=== PATIENT | female | born 1965 | race Caucasian/White ===

== ENCOUNTER 2016-10-29 19:44 | Emergency (ER) | payer BC ==
[~2016-10-29] VITALS: Ht 170.2 cm; Wt 101.5 kg
[~2016-10-29 19:44] MED LIST: CALCTAB5 PO; FIBER PO; IBUP-1050 PO; OMEG10007 PO
[2016-10-29 19:57] VITALS: TEMP 37.1; Ht 170.2 cm; Wt 101.5 kg
[2016-10-29] MEDS ORDERED: KETOROLAC TROMETHAMINE 30 MG/ML VIAL IV STA (20:11)
--- NOTE | 2016-10-29 20:36 | DIAGNOSTIC IMAGING REPORT ---
CHEST ONE VIEW PORTABLE CLINICAL HISTORY: Evaluate Fever/Sepsis dyspnea COMPARISON STUDY: 08/16/2006 FINDINGS: The bones soft tissues and hemidiaphragms are normal. The cardiomediastinal silhouette is normal. The lungs are clear. The pulmonary vasculature is normal. IMPRESSION: Negative chest. Electronically signed by: Mani Kowalski M.D. 10/29/2016 8:34 PM
[2016-10-29 20:37] LABS: BASO % 0.7 %; BASO ABS # 0.07 K/uL (0-0.2); COMPLETE YES; EOS % 2.8 %; HEMATOCRIT 40.2 % (37-47); IG% 0.2 %; LYMPH % 46.6 %; LYMPH ABS # 4.47 K/uL (1.2-3.4); MEAN CELL VOLUME 89.1 fL (80-100); MEAN CORPUSCULAR HEMOGLOBIN 29.9 pg (25-34); MEAN CORPUSCULAR HGB CONC 33.6 g/dl (32-36); MEAN PLATELET VOLUME 10.4 fL (7.4-10.4); MONO % 4.9 %; NEUT % 44.8 %; PLATELET COUNT 258 K/uL (130-400); RED BLOOD COUNT 4.51 M/uL (4.2-5.4); WHITE BLOOD COUNT 9.59 K/uL (4.8-10.8)
[2016-10-29 20:51] LABS: PARTIAL THROMBOPLASTIN RATIO 1.1; PROTHROMBIN TIME (PATIENT) 10.2 SECONDS (9.0-12.0)
[2016-10-29] MEDS ORDERED: MoRPHine SULFATE 4 MG/ML 1 ML CARP\\VIAL IV STA (20:51)
[2016-10-29] MEDS ORDERED: GLUCTAB7 PO (20:56)
[2016-10-29] MEDS ORDERED: PSYL1CAP4 PO (20:56)
[2016-10-29] MEDS ORDERED: CYCL10TA6 PO (20:56)
[2016-10-29] MEDS ORDERED: IBUP-1050 PO (20:56)
[2016-10-29] MEDS ORDERED: TOPI25TA99 PO (20:56)
[2016-10-29] MEDS ORDERED: ECHI80CA PO (20:56)
[2016-10-29 20:58] LABS: ALT/SGPT 20 U/L (12-78); BLOOD UREA NITROGEN 16 mg/dl (7-18); BUN/CREATININE RATIO 21.1 (10-20); CALCIUM 8.8 mg/dl (8.5-10.1); CARBON DIOXIDE 26 mmol/L (21-32); CHLORIDE 109 mmol/L (98-107); CREATININE 0.75 mg/dl (0.60-1.20); GLUCOSE 95 mg/dl (70-99); POTASSIUM 3.5 mmol/L (3.5-5.1); SODIUM 142 mmol/L (136-145)
[2016-10-29 21:01] LABS: ALKALINE PHOSPHATASE 80 U/L (45-117); AST/SGOT 16 U/L (15-37)
--- NOTE | 2016-10-29 21:14 | EMERGENCY ROOM VISIT NOTE ---
History Report prepared by Jacquelyn: Jackie Humphreys Under the Supervision of: Dr. Leo Mcintyre D.O. First contact with patient: 20:05 Chief Complaint: CHEST PAIN Stated Complaint: CHEST PAIN- HX CARDIAC Nursing Triage Summary: Patient reports chest pain that began a couple weeks ago. Patient states "it hurts to take a deep breath." Denies nausea and diaphoresis. Patient has hx slight mitral valve prolapse. History of Present Illness The patient is a 50 year old female who presents to the Emergency Room with complaints of intermittent left sided chest pain that began 2-3 weeks ago. She currently rates her discomfort as a 10/10 in severity. The patient states that when her discomfort started 2-3 weeks ago she had a cold and additionally notes that she quit smoking at this time. The patient describes her pain as a sharp pain and states that it wakes her in the middle of the night. She states that her pain is worsened with breathing and notes that it radiates to her back. The patient states that she cannot work out due to the pain. Source of History: patient Onset: 2-3 weeks ago Position: chest (left) Symptom Intensity: 10/10 Quality: sharp Timing: intermittent Modifying Factors (Worsening): breathing Associated Symptoms: + back pain Review of Systems See HPI for pertinent positives & negatives. A total of 10 systems reviewed and were otherwise negative. Past Medical & Surgical Medical Problems: (1) Kidney stones Surgical Problems: (1) S/P hysterectomy Family History Diabetes mellitus Gallbladder disease Heart disease Hypertension Kidney disease Social History Smoking Status: Former Smoker Drug Use: none Marital Status: Housing Status: lives with family Occupation Status: employed Current/Historical Medications Scheduled Echinacea (Echinacea), 4 CAP PO DAILY Fish Oil ([place]-3), 4 CAP PO DAILY Hdukjfbrwey-Kffwbjsbitv-Cbj C- (Glucosamine Chondroitin), 2 TABS PO DAILY Ibuprofen (Advil), 800 MG PO QAM Psyllium (Fiber), 5 CAP PO DAILY Topiramate (Topamax ), 25 MG PO BID Scheduled PRN Cyclobenzaprine Hcl (Flexeril), 10 MG PO BID PRN for Muscle Spasm Ibuprofen (Advil), 800 MG PO UD PRN for Pain or Fever Allergies Coded Allergies: Acetaminophen (Verified Allergy, Intermediate, Hives, 10/29/16) Dextromethorphan (Verified Allergy, Intermediate, Hives, 10/29/16) Ethanol (Verified Allergy, Intermediate, Hives, 10/29/16) Latex (Verified Allergy, Intermediate, Hives, 10/29/16) Adhesives (Unverified Allergy, Mild, 02/04/16) Diclofenac (Unverified Allergy, Mild, 02/04/16) Doxylamine (Unverified Allergy, Mild, 02/04/16) Pseudoephedrine (Unverified Allergy, Mild, 02/04/16) Physical Exam Vital Signs Date Time Temp Pulse Resp B/P Pulse Ox O2 Delivery O2 Flow Rate FiO2 10/29/16 21:13 66 10/29/16 21:00 65 16 130/87 97 Room Air 10/29/16 20:22 Room Air 10/29/16 19:57 37.1 71 18 147/82 97 Room Air Physical Exam CONSTITUTIONAL/VITAL SIGNS: Reviewed / noted above. GENERAL: Non-toxic in appearance. INTEGUMENTARY: Warm, dry, and [place]. HEAD: Normocephalic. EYES: without scleral icterus or trauma. ENT/OROPHARYNX: clear and moist. LYMPHADENOPATHY/NECK: Is supple without lymphadenopathy or meningismus. CHEST WALL: Tenderness to palpation of the costochondral region of the left anterior chest wall. RESPIRATORY: Lungs clear and equal. CARDIOVASCULAR: Regular rate and rhythm. GI/ABDOMEN: Soft and nontender. No organomegaly or pulsatile mass. No rebound or guarding. Normal bowel sounds. EXTREMITIES: Warm and well perfused. BACK: No CVA tenderness. NEUROLOGICAL: Intact without focal deficits. PSYCHIATRIC: normal affect. MUSCULOSKELETAL: Normally developed with good muscle tone. Medical Decision & Procedures ER Provider Diagnostic Interpretation: X ray results and stated below per my interpretation and radiology interpretation. CHEST ONE VIEW PORTABLE CLINICAL HISTORY: Evaluate Fever/Sepsis dyspnea COMPARISON STUDY: 08/16/2006 FINDINGS: The bones soft tissues and hemidiaphragms are normal. The cardiomediastinal silhouette is normal. The lungs are clear. The pulmonary vasculature is normal. IMPRESSION: Negative chest. Electronically signed by: Mani Kowalski M.D. 10/29/2016 8:34 PM Laboratory Results 10/29/16 20:20 Red Blood Count 4.51, Mean Corpuscular Volume 89.1, Mean Corpuscular Hemoglobin 29.9, Mean Corpuscular Hemoglobin Concent 33.6, Mean Platelet Volume 10.4, Neutrophils (%) (Auto) 44.8, Lymphocytes (%) (Auto) 46.6, Monocytes (%) (Auto) 4.9, Eosinophils (%) (Auto) 2.8, Basophils (%) (Auto) 0.7, Neutrophils # (Auto) 4.29, Lymphocytes # (Auto) 4.47, Monocytes # (Auto) 0.47, Eosinophils # (Auto) 0.27, Basophils # (Auto) 0.07 10/29/16 20:20 Test 10/29/16 20:20 10/29/16 20:31 White Blood Count 9.59 K/uL (4.8-10.8) Red Blood Count 4.51 M/uL (4.2-5.4) Hemoglobin 13.5 g/dL (12.0-16.0) Hematocrit 40.2 % (37-47) Mean Corpuscular Volume 89.1 fL (80-100) Mean Corpuscular Hemoglobin 29.9 pg (25-34) Mean Corpuscular Hemoglobin Concent 33.6 g/dl (32-36) Platelet Count 258 K/uL (130-400) Mean Platelet Volume 10.4 fL (7.4-10.4) Neutrophils (%) (Auto) 44.8 % Lymphocytes (%) (Auto) 46.6 % Monocytes (%) (Auto) 4.9 % Eosinophils (%) (Auto) 2.8 % Basophils (%) (Auto) 0.7 % Neutrophils # (Auto) 4.29 K/uL (1.4-6.5) Lymphocytes # (Auto) 4.47 K/uL (1.2-3.4) Monocytes # (Auto) 0.47 K/uL (0.11-0.59) Eosinophils # (Auto) 0.27 K/uL (0-0.5) Basophils # (Auto) 0.07 K/uL (0-0.2) RDW Standard Deviation 42.7 fL (36.4-46.3) RDW Coefficient of Variation 13.0 % (11.5-14.5) Immature Granulocyte % (Auto) 0.2 % Immature Granulocyte # (Auto) 0.02 K/uL (0.00-0.02) Prothrombin Time 10.2 SECONDS (9.0-12.0) Prothromb Time International Ratio 1.0 (0.9-1.1) Activated Partial Thromboplast Time 28.0 SECONDS (21.0-31.0) Partial Thromboplastin Ratio 1.1 Anion Gap 7.0 mmol/L (3-11) Est Creatinine Clear Calc Drug Dose 112.3 ml/min Estimated GFR () 109.2 Estimated GFR (Non- 94.3 BUN/Creatinine Ratio 21.1 (10-20) Calcium Level 8.8 mg/dl (8.5-10.1) Total Bilirubin 0.1 mg/dl (0.2-1) Direct Bilirubin < 0.1 mg/dl (0-0.2) Aspartate Amino Transf (AST/SGOT) 16 U/L (15-37) Alanine Aminotransferase (ALT/SGPT) 20 U/L (12-78) Alkaline Phosphatase 80 U/L (45-117) Total Protein 7.2 gm/dl (6.4-8.2) Albumin 3.8 gm/dl (3.4-5.0) Bedside D-Dimer 311 ng/mlFEU (0-450) Bedside Troponin I 0.000 ng/ml (0-0.045) Laboratory results as stated above per my review. Medications Administered Medications (Trade) Dose Ordered Sig/Franklin Route Start Time Stop Time Status Last Admin Dose Admin Ketorolac Tromethamine (Toradol Inj) 30 mg NOW STAT IV 10/29/16 20:11 10/29/16 20:13 DC 10/29/16 20:23 30 MG Morphine Sulfate (MoRPHine SULFATE INJ) 4 mg NOW STAT IV 10/29/16 20:51 10/29/16 20:53 DC 10/29/16 20:58 4 MG ECG Indication: chest pain Rate (beats per minute): 58 Rhythm: sinus bradycardia Findings: no acute ischemic change, no ectopy ED Course 2006: Previous medical records were reviewed. The patient was evaluated in room C6. A complete history and physical examination was performed. 2010: Ordered Toradol Inj 30 mg IV. 2050: Ordered Morphine Sulfate 4 mg IV. 2114: I reevaluated the patient and she is resting comfortably. I discussed the exam findings and I discussed the treatment plan. She verbalized complete understanding and agreement. She is ready to go home. Medical Decision the differential was considered includes acute myocardial infarction, acute coronary syndrome, myocarditis, pericarditis, pericardial effusions /tamponad, esophageal perforation, thoracic aortic dissection, pulmonary embolism, pneumonia, pneumothorax, pancreatitis, shingles, acute cholecystitis, perforated abdominal viscus. This is a 50-year-old female who presents to the ED with a chief complaint of chest pain for the past 2-3 weeks. The patient's pain is retrosternal and left chest. She states that is worse with breathing. The patient states that her symptoms started after having upper respiratory illness and a lot of coughing. She states he also quit smoking 3 weeks ago. Her vital signs are normal. She is afebrile. She is not hypoxic. Her physical exam reveals reproducible left chest wall tenderness on exam. Lungs are clear. Chest x-ray did not show acute disease. CBC is normal. D-dimer is negative. Troponin is negative. Metabolic panel was unremarkable. The patient was told results the test per cheese treated with IV Toradol and IV morphine here for pain. NSAIDs were recommended as outpatient treatment. She is felt to be stable for discharge and outpatient follow-up. Impression Primary Impression: Costochondral pain Scribe Attestation The scribe's documentation has been prepared under my direction and personally reviewed by me in its entirety. I confirm that the note above accurately reflects all work, treatment, procedures, and medical decision making performed by me. Departure Information Dispostion Home / Self-Care Referrals Megan Lujan M.D. (PCP) Forms HOME CARE DOCUMENTATION FORM, IMPORTANT VISIT INFORMATION Patient Instructions A Signature Page, ED Chest Pain Costochondritis, My [facility] Additional Instructions Take ibuprofen 600 mg every 6 hours as needed for pain. Follow-up with your doctor for further care and evaluation in 1-2 days. Return to the emergency department for worsening or new symptoms or any concerns. You have been examined and treated today on an emergency basis only. This is not a substitute for, or an effort to provide, complete comprehensive medical care. It is impossible to recognize and treat all injuries or illnesses in a single emergency department visit. It is therefore important that you follow up closely with your doctor. Call as soon as possible for an appointment.
[2016-10-29 21:35] VITALS: BP 130/87; PULSE 66; O2SAT 97
[2016-12-13] MEDS ORDERED: OSEL75CA23 PO (09:43)
[2017-08-31] MEDS ORDERED: MELO7.5T5 PO (15:23)
[2017-08-31] MEDS ORDERED: ACET-1256 PO (15:23)
[2017-08-31] MEDS ORDERED: VNTHFA/IN INH (15:23)
[2017-08-31] MEDS ORDERED: FLUT0.15 INTNAS (15:23)
[2017-08-31] MEDS ORDERED: PSYLLIUM PO (15:23)
[2017-10-29] MEDS ORDERED: OXYC1TAB3 PO (23:08)
== END 2016-10-29 21:21 | disposition home or self-care (01) ==
LOC: C.EDB 19:45 → C.EDC 21:21
DX: R07.1 Chest pain on breathing (principal); Z79.899 Other long term (current) drug therapy

== ENCOUNTER 2016-12-13 08:31 | Emergency (ER) | payer BC, OTHER ==
[~2016-12-13] VITALS: Ht 170.2 cm; Wt 100.7 kg
[~2016-12-13 08:31] MED LIST changes: -CALCTAB5 PO; +CYCL10TA6 PO; +ECHI80CA PO; -FIBER PO; +GLUCTAB7 PO; +PSYL1CAP4 PO; +TOPI25TA99 PO
[2016-12-13 08:39] VITALS: TEMP 37.8; Ht 170.2 cm; Wt 100.7 kg
[2016-12-13] MEDS ORDERED: ONDANSETRON INJ 2 MG/ML 2 ML VIAL IV PRN (09:00)
[2016-12-13] MEDS ORDERED: SODIUM CHLORIDE 0.9% 1000ML 1,000 ML IV ONE (09:00)
--- NOTE | 2016-12-13 09:05 | EMERGENCY ROOM VISIT NOTE ---
History Report prepared by Jacquelyn: Jackie Humphreys Under the Supervision of: Dr. Ari Rivera M.D. First contact with patient: 08:50 Chief Complaint: ILLNESS Stated Complaint: SEVERE HEAD/NECK PAIN, DIZZY, N DX: FLU THIS WEEK History of Present Illness The patient is a 50 year old female who presents to the Emergency Room with complaints of a persistent illness that began Thursday. She currently rates her discomfort as a 10/10 in severity. The patient states that early this week she was diagnosed with the flu. She states that after she was diagnosed her mother and law was diagnosed. The patient states that she was started on Tamiflu on . The patient notes multiple sick contacts between her place of employment and her family. The patient's notes that he was recently discharged from the hospital with viral meningitis. The patient associates a headache, neck pain, nausea, dizziness, lightheadedness, visual disturbances, and a cough. She denies any abdominal pain. The patient states that she was started on a Z-pack. Source of History: patient Onset: Thursday Position: other (global) Symptom Intensity: 10/10 Quality: other (illness) Timing: other (persistent) Associated Symptoms: + cough, + headache, + nausea, + neck pain, No abdominal pain Note: Associated Symptoms: dizziness, lightheadedness, visual disturbances. Review of Systems All systems have been listed, reviewed, and are negative other than those previously mentioned. Please see Additional Medical History Sheet. Past Medical & Surgical Medical Problems: (1) Kidney stones Surgical Problems: (1) S/P hysterectomy Family History Cancer Diabetes mellitus Gallbladder disease Heart disease Hypertension Kidney disease Kidney stones Lung disease Social History Smoking Status: Current Every Day Smoker Drug Use: none Marital Status: Housing Status: lives with family Occupation Status: employed Current/Historical Medications Scheduled Benzonatate (Tessalon Perles), 100 MG PO TID Cetirizine (Zyrtec), 10 MG PO DAILY Echinacea (Echinacea), 4 CAP PO DAILY Fish Oil ([place]-3), 4 CAP PO DAILY Rmuamglimzg-Psvuczhklyr-Uot C- (Glucosamine Chondroitin), 2 TABS PO DAILY Ibuprofen (Advil), 800 MG PO QAM Ondasetron Odt (Zofran Odt), 4 MG SL Q6H Oseltamivir Phosphate (Tamiflu), 75 MG PO BID Psyllium (Fiber), 5 CAP PO DAILY Topiramate (Topamax ), 25 MG PO BID Scheduled PRN Guaifenesin-Codeine (Iophen C-Nr), 5 ML PO Q4 PRN for Cough Ibuprofen (Advil), 800 MG PO UD PRN for Pain or Fever Naproxen (Aleve), 440 MG PO Q12 PRN for Pain or Fever Oxycodone Immediate Rel Tab (Roxicodone Ir), 1-2 TAB PO Q4H PRN for Severe Pain Allergies Coded Allergies: Acetaminophen (Verified Allergy, Intermediate, Hives, 12/13/16) Dextromethorphan (Verified Allergy, Intermediate, Hives, 12/13/16) Ethanol (Verified Allergy, Intermediate, Hives, 12/13/16) Latex (Verified Allergy, Intermediate, Hives, 12/13/16) Adhesives (Unverified Allergy, Mild, 12/13/16) Diclofenac (Unverified Allergy, Mild, 12/13/16) Doxylamine (Unverified Allergy, Mild, 12/13/16) Pseudoephedrine (Unverified Allergy, Mild, 12/13/16) Physical Exam Vital Signs Date Time Temp Pulse Resp B/P Pulse Ox O2 Delivery O2 Flow Rate FiO2 12/13/16 12:40 50 20 104/58 94 12/13/16 12:16 52 20 97/63 96 Room Air 12/13/16 11:45 52 20 115/63 97 Room Air 12/13/16 10:49 60 20 106/58 98 12/13/16 09:35 Room Air 12/13/16 09:09 67 12/13/16 09:07 62 113/63 96 12/13/16 08:39 37.8 55 18 87/53 95 Room Air Physical Exam GENERAL: Patient awake, alert, oriented x 3. Patient follows commands. Patient appears to be in moderate to severe distress, somewhat pale. SKIN: No erythema, pallor, cyanosis or rash HEENT: Normal head, pupils equal, reactive to light and accommodation. Ears normal. Oral cavity and posterior pharynx appear normal. Neck: Pain with flexion of her neck. Without adenopathy, no neck vein distention. LUNGS: Some pain with deep inspiration. Clear to auscultation. No wheezes, no rales, no rhonchi. HEART: No murmurs. No gallops. No rubs ABDOMEN: No masses, no rebound, no hepatomegaly or splenomegaly. EXTREMITIES: No signs of trauma. No pedal or pretibial edema. No calf or thigh tenderness. NEUROLOGIC: Cranial nerves II-XII within normal limits. No gross motor sensory function deficits. Medical Decision & Procedures ER Provider Diagnostic Interpretation: X ray results are stated below per my interpretation and the radiologist's interpretation. CHEST 2 VIEWS ROUTINE CLINICAL HISTORY: Cough. COMPARISON STUDY: Chest radiograph October 29, 2016. FINDINGS: Lung volumes are normal. Lungs are clear. There is no pneumothorax or pleural effusion. Cardiomediastinal silhouette is normal. Mild interstitial prominence is unchanged and likely within normal limits. There is no evidence of pulmonary edema. IMPRESSION: No acute cardiopulmonary findings. Electronically signed by: Norberto Rubio M.D. 12/13/2016 10:23 AM Dictated Date/Time: 12/13/2016 10:22 AM Laboratory Results 12/13/16 09:07 Red Blood Count 4.28, Mean Corpuscular Volume 88.1, Mean Corpuscular Hemoglobin 30.1, Mean Corpuscular Hemoglobin Concent 34.2, Mean Platelet Volume 10.5, Neutrophils (%) (Auto) 39.4, Lymphocytes (%) (Auto) 46.7, Monocytes (%) (Auto) 10.0, Eosinophils (%) (Auto) 2.9, Basophils (%) (Auto) 0.6, Neutrophils # (Auto ) 2.05, Lymphocytes # (Auto) 2.43, Monocytes # (Auto) 0.52, Eosinophils # (Auto ) 0.15, Basophils # (Auto) 0.03 12/13/16 09:07 Test 12/13/16 09:07 12/13/16 09:37 12/13/16 10:00 White Blood Count 5.20 K/uL (4.8-10.8) Red Blood Count 4.28 M/uL (4.2-5.4) Hemoglobin 12.9 g/dL (12.0-16.0) Hematocrit 37.7 % (37-47) Mean Corpuscular Volume 88.1 fL (80-100) Mean Corpuscular Hemoglobin 30.1 pg (25-34) Mean Corpuscular Hemoglobin Concent 34.2 g/dl (32-36) Platelet Count 199 K/uL (130-400) Mean Platelet Volume 10.5 fL (7.4-10.4) Neutrophils (%) (Auto) 39.4 % Lymphocytes (%) (Auto) 46.7 % Monocytes (%) (Auto) 10.0 % Eosinophils (%) (Auto) 2.9 % Basophils (%) (Auto) 0.6 % Neutrophils # (Auto) 2.05 K/uL (1.4-6.5) Lymphocytes # (Auto) 2.43 K/uL (1.2-3.4) Monocytes # (Auto) 0.52 K/uL (0.11-0.59) Eosinophils # (Auto) 0.15 K/uL (0-0.5) Basophils # (Auto) 0.03 K/uL (0-0.2) RDW Standard Deviation 42.5 fL (36.4-46.3) RDW Coefficient of Variation 13.2 % (11.5-14.5) Immature Granulocyte % (Auto) 0.4 % Immature Granulocyte # (Auto) 0.02 K/uL (0.00-0.02) Anion Gap 12.0 mmol/L (3-11) Est Creatinine Clear Calc Drug Dose 123.4 ml/min Estimated GFR () 119.9 Estimated GFR (Non- 103.4 BUN/Creatinine Ratio 14.6 (10-20) Calcium Level 8.4 mg/dl (8.5-10.1) Total Bilirubin 0.4 mg/dl (0.2-1) Aspartate Amino Transf (AST/SGOT) 11 U/L (15-37) Alanine Aminotransferase (ALT/SGPT) 15 U/L (12-78) Alkaline Phosphatase 60 U/L (45-117) Total Protein 6.6 gm/dl (6.4-8.2) Albumin 3.5 gm/dl (3.4-5.0) Globulin 3.1 gm/dl (2.5-4.0) Albumin/Globulin Ratio 1.1 (0.9-2) CSF Color COLORLESS CSF Appearance CLEAR CSF WBC 4 /uL (0-5) CSF RBC 0 /uL (0) CSF Xanthrochromic NO XANTHOCHROMIA CSF Cell Count Tube # 4 CSF Polynuclear WBCs (%) % CSF Chemistry Tube # 2 CSF Glucose 55 mg/dl (40-70) CSF Total Protein 30.6 mg/dl (15.0-45.0) Influenza Type A (RT-PCR) Neg for Influ A (NEG) Influenza Type B (RT-PCR) Neg for Influ B (NEG) Laboratory results as stated above per my review. Medications Administered Medications (Trade) Dose Ordered Sig/Franklin Route Start Time Stop Time Status Last Admin Dose Admin Sodium Chloride (Nss 1000ml) 1,000 ml @ 1,000 mls/hr Q1H ONCE IV 12/13/16 09:00 12/13/16 09:59 DC 12/13/16 09:05 1,000 MLS/HR Morphine Sulfate (MoRPHine SULFATE INJ) 6 mg Q1H PRN IV 12/13/16 09:00 12/13/16 13:18 DC 12/13/16 10:53 6 MG Ondansetron HCl (Zofran Inj) 4 mg Q1HWA PRN IV 12/13/16 09:00 12/13/16 13:18 DC 12/13/16 09:45 4 MG Ceftriaxone Sodium (Rocephin Inj) 1 gm NOW STAT IV 12/13/16 11:49 12/13/16 11:50 DC 12/13/16 12:11 1 GM Procedure Lumbar Puncture Indication: Rule out meningitis. The opening pressure was 27 and the closing pressure was 24. Verbal consent was obtained after the risks and benefits were explained, including but not limited to headache, bleeding/clotting, scarring, infection, pain, and bone/joint/nerve damage. At this time, the risks of the procedure are less than the risks of NOT performing the procedure. A time out was taken and the correct patient and site identified. The patient was placed in the left lateral Recumbant position and the back was prepped with betadine and draped in the standard fashion. The L3 intervertebral space was identified, anesthetized locally with 1% lidocaine without epinephrine, and the spinal needle was inserted through the skin with the bevel parallel to the dural fibers. The needle was carefully advanced into the lumbar cistern and 4 tubes of clear, colorless CSF was obtained. The stylet was replaced and the needle was removed. A bandaid was placed and the patient was placed in the supine position. The patient tolerated the procedure well and there were no complications. ED Course 0850: Past medical records reviewed. The patient was evaluated in room B8. A complete history and physical examination was performed. 0900: Ordered Zofran Inj 4 mg IV, Morphine Sulfate 6 mg IV, Sodium Chloride 1000 ml at 1000 mls/hr IV. 0923: I performed the lumbar puncture on the patient. See procedure note for further detail. 1145: I reevaluated the patient and she is resting comfortably. I discussed the exam findings with her and I discussed the treatment plan. She verbalized complete understanding and agreement. She is ready to go home. 1149: Ordered Rocephin Inj 1 gm IV. Medical Decision Nurses notes reviewed. Medical history sheet reviewed. Differential diagnosis includes but is not limited to: influenza, viral illness, pharyngitis, viral meningitis, bacterial meningitis, pneumonia, encephalitis, metabolic disorder, dehydration. The patient's was recently diagnosed with viral meningitis. She tested positive for influenza. She is currently taking Tamiflu. She now is here with multiple aches and pains. Multiple labs, chest x-ray, spinal tap and urinalysis were evaluated. Please see above. The patient's white count is not elevated. The patient has 4 white cells in her spinal tap. Glucose and protein are within normal range. I do not believe the patient has a bacterial cause for her symptoms. Despite that I did give her 1 g of IV Rocephin. The patient is felt safe to return home. She is to drink fluids. She will be given pain medication and Zofran. [place] Drug Monitoring Program Search Results: patient reviewed within database, no issues identified Impression Primary Impression: Viral meningitis Additional Impression: Influenza Scribe Attestation The scribe's documentation has been prepared under my direction and personally reviewed by me in its entirety. I confirm that the note above accurately reflects all work, treatment, procedures, and medical decision making performed by me. Departure Information Dispostion Home / Self-Care Prescriptions Ondasetron Odt (ZOFRAN ODT) 4 Mg Tab 4 MG SL Q6H for Nausea, #10 TAB Prov: Ari Rivera M.D. 12/13/16 Oxycodone Immediate Rel Tab (ROXICODONE IR) 5 Mg Tab 1-2 TAB PO Q4H Y for Severe Pain, #20 TAB Prov: Ari Rivera M.D. 12/13/16 Referrals No Doctor, Assigned (PCP) Forms HOME CARE DOCUMENTATION FORM, IMPORTANT VISIT INFORMATION Patient Instructions My [employer] Additional Instructions Drink plenty of fluids. 1-2 OxyIR every 4 hours as needed for moderate to severe pain. Do not drive or operate machinery while taking OxyIR. 1 Zofran every 4 hours as needed for nausea. REST Follow-up with your family physician within the next 7 days. Problem Qualifiers
[2016-12-13 09:22] LABS: BASO % 0.6 %; BASO ABS # 0.03 K/uL (0-0.2); COMPLETE YES; EOS % 2.9 %; HEMATOCRIT 37.7 % (37-47); IG% 0.4 %; LYMPH % 46.7 %; LYMPH ABS # 2.43 K/uL (1.2-3.4); MEAN CELL VOLUME 88.1 fL (80-100); MEAN CORPUSCULAR HEMOGLOBIN 30.1 pg (25-34); MEAN CORPUSCULAR HGB CONC 34.2 g/dl (32-36); MEAN PLATELET VOLUME 10.5 fL (7.4-10.4); NEUT % 39.4 %; PLATELET COUNT 199 K/uL (130-400); RED BLOOD COUNT 4.28 M/uL (4.2-5.4)
[2016-12-13 09:35] LABS: BUN/CREATININE RATIO 14.6 (10-20); CALCIUM 8.4 mg/dl (8.5-10.1); CREATININE 0.68 mg/dl (0.60-1.20); POTASSIUM 3.9 mmol/L (3.5-5.1)
[2016-12-13 09:38] LABS: ALB/GLOB RATIO 1.1 (0.9-2)
[2016-12-13] MEDS ORDERED: BENZ100C84 PO (09:43)
[2016-12-13] MEDS ORDERED: CETI10TA84 PO (09:43)
[2016-12-13] MEDS ORDERED: GUAI100L2 PO (09:43)
[2016-12-13] MEDS ORDERED: NF406 PO (09:43)
[2016-12-13] MEDS ORDERED: NAPR1TAB9 PO (09:43)
[2016-12-13] MEDS: MoRPHine SULFATE 10 MG/ML CARP/VIAL IV PRN ×2 (09:45→10:53)
[2016-12-13 10:11] LABS: CSF TOTAL PROTEIN 30.6 mg/dl (15.0-45.0)
[2016-12-13 10:16] LABS: CSF APPEARANCE CLEAR; CSF COLOR COLORLESS; CSF XANTHOCHROMIC NO XANTHOCHROMIA
--- NOTE | 2016-12-13 10:24 | DIAGNOSTIC IMAGING REPORT ---
CHEST 2 VIEWS ROUTINE CLINICAL HISTORY: Cough. COMPARISON STUDY: Chest radiograph October 29, 2016. FINDINGS: Lung volumes are normal. Lungs are clear. There is no pneumothorax or pleural effusion. Cardiomediastinal silhouette is normal. Mild interstitial prominence is unchanged and likely within normal limits. There is no evidence of pulmonary edema. IMPRESSION: No acute cardiopulmonary findings. Electronically signed by: Norberto Rubio M.D. 12/13/2016 10:23 AM Dictated Date/Time: 12/13/2016 10:22 AM
[2016-12-13 11:48] LABS: INFLUENZA A PCR Neg for Influ A (NEG); INFLUENZA B PCR Neg for Influ B (NEG)
[2016-12-13] MEDS ORDERED: CEFTRIAXONE SOD INJ 1 GM ADDVIAL IV STA (11:49)
[2016-12-13] MEDS ORDERED: OXYC1TAB3 PO (11:56)
[2016-12-13] MEDS ORDERED: ONDA4TAB10 SL (11:56)
[2016-12-13 12:40] VITALS: BP 104/58; PULSE 50; O2SAT 94
== END 2016-12-13 12:41 | disposition home or self-care (01) ==
LOC: C.EDB 08:33
DX: A87.9 Viral meningitis, unspecified (principal); J11.1 Influenza due to unidentified influenza virus with other respiratory manifestations

== ENCOUNTER 2017-06-05 00:11 | Emergency (ER) | payer OTHER, BC ==
[~2017-06-05] VITALS: Ht 170.2 cm; Wt 105.0 kg
[~2017-06-05 00:11] MED LIST changes: +BENZ100C84 PO; +CETI10TA84 PO; -CYCL10TA6 PO; +GUAI100L2 PO; +NAPR1TAB9 PO; +NF406 PO; +ONDA4TAB10 SL; +OXYC1TAB3 PO
[2017-06-05 00:15] VITALS: TEMP 36.9; Ht 170.2 cm; Wt 105.0 kg
[2017-06-05] MEDS ORDERED: TOPI50TA24 PO (00:39)
[2017-06-05] MEDS ORDERED: ONDA4TAB10 SL (00:39)
[2017-06-05] MEDS ORDERED: HYDROCODONE/ACETAMOPHEN 5/325MG TAB PO STA (00:59)
[2017-06-05] MEDS ORDERED: NORCO 5/325MG HOME PACK PO ONE (01:00)
--- NOTE | 2017-06-05 01:15 | EMERGENCY ROOM VISIT NOTE ---
History Report prepared by Jacquelyn: Luis Alberto Delgadillo Under the Supervision of: Dr. Ca Dooley M.D. First contact with patient: 00:23 Chief Complaint: KNEEPAIN Stated Complaint: LT KNEE PAIN AND SWELLING-WORK RELATED History of Present Illness The patient is a 51 year old female who presents to the Emergency Room with complaints of worsening left knee pain for the past week. The patient states that she took a step backwards and her knee buckled, and a week ago she fell and twisted her knee, and it has been very swollen. She states that January 22 she had surgery on her knee for a torn meniscus. Additionally she got a Synvisc shot on April 27. Source of History: patient Onset: a week ago Position: knee (left) Quality: other (swelling) Timing: worsening Review of Systems See HPI for pertinent positives & negatives. A total of 6 systems reviewed and were otherwise negative. Past Medical & Surgical Medical Problems: (1) Kidney stones Surgical Problems: (1) S/P hysterectomy Family History Cancer Diabetes mellitus Gallbladder disease Heart disease Hypertension Kidney disease Kidney stones Lung disease Social History Smoking Status: Current Every Day Smoker Drug Use: none Marital Status: Housing Status: lives with family Occupation Status: employed Current/Historical Medications Scheduled Cetirizine (Zyrtec), 10 MG PO DAILY Fish Oil ([place]-3), 4 CAP PO DAILY Psyllium (Fiber), 5 CAP PO DAILY Topiramate (Topamax), 50 MG PO BID Scheduled PRN Benzonatate (Tessalon Perles), 100 MG PO TID PRN for Cough Ibuprofen (Advil), 800 MG PO UD PRN for Pain or Fever Ondasetron Odt (Zofran Odt), 4 MG SL Q6H PRN for Nausea or Vomiting Allergies Coded Allergies: Dextromethorphan (Verified Allergy, Intermediate, Hives, 06/05/17) Ethanol (Verified Allergy, Intermediate, Hives, 06/05/17) Latex (Verified Allergy, Intermediate, Hives, 06/05/17) Adhesives (Verified Allergy, Mild, 06/05/17) Diclofenac (Verified Allergy, Mild, 06/05/17) Doxylamine (Verified Allergy, Mild, 06/05/17) Pseudoephedrine (Verified Allergy, Mild, 06/05/17) Physical Exam Vital Signs Date Time Temp Pulse Resp B/P (MAP) Pulse Ox O2 Delivery O2 Flow Rate FiO2 06/05/17 01:30 66 16 111/77 97 06/05/17 00:15 36.9 66 20 129/79 97 Room Air Physical Exam Vital signs reviewed. General: Well-appearing female, in no significant distress. Abdomen: Soft, nontender, nondistended, positive bowel sounds. Musculoskeletal: Left knee has some pain with flexion. Patient able to fully extend the leg. No tenderness along the joint line with valgus and varus stress. Tenderness to palpation to distal patella without significant bony abnormality identified. Atraumatic, no peripheral edema. Atraumatic, no peripheral edema. Neurologic: Patient awake alert and oriented x 3 Skin: Warm, dry, no rash Medical Decision & Procedures ER Provider Diagnostic Interpretation: X-ray results as stated below per interpretation by me: Left Knee: No bony injury. Some degenerative changes, Mild soft tissue swelling. Medications Administered Medications (Trade) Dose Ordered Sig/[place] Route Start Time Stop Time Status Last Admin Dose Admin Acetaminophen/ Hydrocodone Bitart (Antimony 5/325mg Home Pack) 1 homepack UD ONCE PO 06/05/17 01:00 06/05/17 01:01 DC 06/05/17 01:27 1 HOMEPACK Acetaminophen/ Hydrocodone Bitart (Antimony 5/325 Tab) 1 tab NOW STAT PO 06/05/17 00:59 06/05/17 01:01 DC 06/05/17 01:09 1 TAB ED Course 0053: Past medical records reviewed. The patient was evaluated in room A11. A complete history and physical examination was performed. 0059: Antimony 5/325 1 Tab PO 0100: Antimony 5/325mg 1 Home Pack PO 0120: Upon reevaluation, the patient appeared to have improvement of her symptoms. I discussed findings with her. She verbalized agreement of the treatment plan. She was discharged home. Medical Decision Differential diagnosis: Etiologies such as fracture, dislocation, neurovascular compromise, compartment syndrome, soft tissue injury, as well as others were entertained. This patient was evaluated and appeared to be in no significant distress. Evaluation of the left knee reveals mild soft tissue swelling. The patient has no significant discomfort with valgus and varus stress. Anterior drawer sign is negative. Patient has intact quadriceps tendons. X-rays were obtained and are negative for acute bony fracture to my interpretation. She was placed in a knee immobilizer and will follow-up with orthopedic surgery for reevaluation within the next 1-2 weeks. Patient was given a Antimony home pack, asked to use ibuprofen as needed for less severe pain. She will ice and elevate the knee as much as possible and return to the ER for worsening of symptoms or any medical concerns. Medication Reconcilliation Current Medication List: was personally reviewed by me Blood Pressure Screening Patient's blood pressure: Normal blood pressure Impression Primary Impression: Sprain of knee Scribe Attestation The scribe's documentation has been prepared under my direction and personally reviewed by me in its entirety. I confirm that the note above accurately reflects all work, treatment, procedures, and medical decision making performed by me. Departure Information Dispostion Home / Self-Care Referrals Megan Lujan M.D. (PCP) Forms HOME CARE DOCUMENTATION FORM, IMPORTANT VISIT INFORMATION Patient Instructions My [facility] Additional Instructions Diagnosis: Knee sprain Ibuprofen 600 mg every 6 hours as needed for pain with food. Antimony one tablet every 6 hours as needed for more severe pain. Ice and elevate the knee when possible. Wear your knee immobilizer well on your feet. Follow-up with orthopedic surgery this week for reevaluation. Return to the ER for worsening of symptoms or any medical concerns.
[2017-06-05 01:30] VITALS: BP 111/77; PULSE 66; O2SAT 97
--- NOTE | 2017-06-05 06:41 | DIAGNOSTIC IMAGING REPORT ---
LEFT KNEE 1 OR 2 VIEWS ROUTINE CLINICAL HISTORY: L knee pain pain COMPARISON: None. DISCUSSION: The bones and joint spaces appear intact. There is no evidence of fracture, dislocation or bony disease. There is no evidence for soft tissue swelling. IMPRESSION: Negative study. The above report was generated using voice recognition software. It may contain grammatical, syntax or spelling errors. Electronically signed by: Mani Kowalski M.D. 06/05/2017 6:39 AM Dictated Date/Time: 06/05/2017 6:39 AM
== END 2017-06-05 01:30 | disposition home or self-care (01) ==
LOC: C.EDB 00:12 → C.EDA 01:30
DX: S83.92XA Sprain of unspecified site of left knee, initial encounter (principal); W19.XXXA Unspecified fall, initial encounter; F17.200 Nicotine dependence, unspecified, uncomplicated; Z87.442 Personal history of urinary calculi; Z90.710 Acquired absence of both cervix and uterus; Z79.899 Other long term (current) drug therapy; Z88.8 Allergy status to other drugs, medicaments and biological substances; Z91.040 Latex allergy status; Z91.09 Other allergy status, other than to drugs and biological substances; Z80.9 Family history of malignant neoplasm, unspecified; Z83.3 Family history of diabetes mellitus; Z83.79 Family history of other diseases of the digestive system; Z82.49 Family history of ischemic heart disease and other diseases of the circulatory system; Z84.1 Family history of disorders of kidney and ureter

== ENCOUNTER 2017-07-09 19:38 | Inpatient (IN) | payer BC, OTHER ==
[~2017-07-09] VITALS: Ht 170.2 cm; Wt 106.4 kg
[~2017-07-09 19:38] MED LIST changes: -ECHI80CA PO; -GLUCTAB7 PO; -GUAI100L2 PO; -NAPR1TAB9 PO; -NF406 PO; -OXYC1TAB3 PO; -TOPI25TA99 PO; +TOPI50TA24 PO
[2017-07-09] MEDS ORDERED: ASPIRIN 81 MG CHEW PO STA (19:59)
[2017-07-09] MEDS ORDERED: MoRPHine SULFATE 10 MG/ML CARP/VIAL IV STA (19:59)
[2017-07-09] MEDS ORDERED: BUPR-79 PO (20:02)
[2017-07-09] MEDS ORDERED: HYDR-5688 PO (20:03)
[2017-07-09] MEDS ORDERED: ATOR-24 PO (20:03)
[2017-07-09] MEDS ORDERED: SODIUM CHLORIDE 0.9% 1000ML 1,000 ML IV STA (20:14)
[2017-07-09 20:15] LABS: HEMATOCRIT 40.3 % (37-47); MEAN CELL VOLUME 91.8 fL (80-100); MEAN CORPUSCULAR HEMOGLOBIN 31.9 pg (25-34); MEAN CORPUSCULAR HGB CONC 34.7 g/dl (32-36); MEAN PLATELET VOLUME 10.9 fL (7.4-10.4); PLATELET COUNT 242 K/uL (130-400); RED BLOOD COUNT 4.39 M/uL (4.2-5.4)
[2017-07-09] MEDS ORDERED: METOCLOPRAMIDE HCL INJ 5 MG/ML 2 ML VIAL IV STA (20:17)
--- NOTE | 2017-07-09 20:19 | DIAGNOSTIC IMAGING REPORT ---
CHEST ONE VIEW PORTABLE CLINICAL HISTORY: Atypical chest pain COMPARISON STUDY: 12/13/2016 FINDINGS: The cardiac and mediastinal contours are normal. There is no evidence of focal pulmonary consolidation. There is no evidence of failure. No pleural effusions are visualized.[ IMPRESSION: No active disease in the chest. Electronically signed by: Augustin Beach M.D. 07/09/2017 8:18 PM Dictated Date/Time: 07/09/2017 8:17 PM
--- NOTE | 2017-07-09 20:28 | EMERGENCY ROOM VISIT NOTE ---
History Report prepared by Jacquelyn: Brent Mars Under the Supervision of: Dr. Leo Jackson M.D. First contact with patient: 19:50 Chief Complaint: CHEST PAIN Stated Complaint: CHEST PAIN History of Present Illness The patient is a 51 year old female who presents to the Emergency Room with complaints of intermittent chest pain that started June 24. She rates her pain as a 10/10 in severity. She states that the pain is not correlated to any activity. The patient admits that the chest pain started again last night and kept waking her up in the middle of the night. The patient states that she called her press technician who told her to report to the ED if her pain worsened. She admits that she has a history of a 2nd degree AV block, which she sees her press technician at [facility] for. She also admits to experiencing a wider range of pulses. The patient states that her heart rate "can go from 30 bpm to 114 bpm. The patient states that she had a stress test done six days ago. She states that she saw her doctor two days ago to see if she was fit for a pacemaker. The patient states that they were waiting for her monitor results after wearing it for a week and wanted to see if she had an interaction of medications. She admits to taking Lipitor for hyperlipidemia. She states that her doctor recently ruled out mitral valve prolapse. Source of History: patient Onset: June 24 Position: chest Symptom Intensity: 10/10 Timing: intermittent Review of Systems See HPI for pertinent positives & negatives. A total of 10 systems reviewed and were otherwise negative. Past Medical & Surgical Medical Problems: (1) Kidney stones (2) Symptomatic bradycardia Surgical Problems: (1) S/P hysterectomy Family History Cancer Diabetes mellitus Gallbladder disease Heart disease Hypertension Kidney disease Kidney stones Lung disease Social History Smoking Status: Former Smoker Drug Use: none Marital Status: Housing Status: lives with family Occupation Status: employed Current/Historical Medications Scheduled Atorvastatin (Lipitor), 40 MG PO QAM Bupropion (Wellbutrin Sr), 150 MG PO BID Cetirizine (Zyrtec), 10 MG PO DAILY Fish Oil ([place]-3), 4 CAP PO DAILY Psyllium (Fiber), 5 CAP PO DAILY Topiramate (Topamax), 50 MG PO BID Scheduled PRN Hydrocodone/Acetaminophen 5MG/325MG ([place] 5MG/325MG), 1 TABLET PO Q6 PRN for Pain Ibuprofen (Advil), 800 MG PO UD PRN for Pain or Fever Ondasetron Odt (Zofran Odt), 4 MG SL Q6H PRN for Nausea or Vomiting Allergies Coded Allergies: Dextromethorphan (Verified Allergy, Intermediate, Hives, 07/09/17) Ethanol (Verified Allergy, Intermediate, Hives, 07/09/17) Latex (Verified Allergy, Intermediate, Hives, 07/09/17) Adhesives (Verified Allergy, Mild, 07/09/17) Diclofenac (Verified Allergy, Mild, 07/09/17) Doxylamine (Verified Allergy, Mild, 07/09/17) Pseudoephedrine (Verified Allergy, Mild, 07/09/17) Physical Exam Vital Signs Date Time Temp Pulse Resp B/P (MAP) Pulse Ox O2 Delivery O2 Flow Rate FiO2 07/09/17 20:01 57 07/09/17 19:41 36.7 58 18 163/81 100 Room Air Physical Exam GENERAL: Patient is a healthy-appearing well-nourished 51 year old female. HEAD: Normocephalic atraumatic EYES: Ocular movements intact pupils equal and react to light OROPHARYNX mucous membranes are moist no exudates present no erythema or edema present NECK: Supple no nuchal rigidity CHEST: Good equal expansion LUNGS: Clear and equal to auscultation CARDIAC: Normal S1 and S2 ABDOMEN: Soft nontender no guarding BACK: No CVA tenderness EXTREMITIES: No pain upon palpation normal muscle strength in all groups no clubbing cyanosis or edema NEURO: Patient is following commands and answering questions appropriately. Alert and oriented x3 Cranial Nerves 2-12 grossly intact Medical Decision & Procedures ER Provider Diagnostic Interpretation: X-ray results as stated below per interpretation by me and the radiologist: CHEST ONE VIEW PORTABLE CLINICAL HISTORY: Atypical chest pain COMPARISON STUDY: 12/13/2016 FINDINGS: The cardiac and mediastinal contours are normal. There is no evidence of focal pulmonary consolidation. There is no evidence of failure. No pleural effusions are visualized.[ IMPRESSION: No active disease in the chest. Electronically signed by: Augustin Beach M.D. 07/09/2017 8:18 PM Dictated Date/Time: 07/09/2017 8:17 PM Laboratory Results 07/09/17 20:00 Red Blood Count 4.39, Mean Corpuscular Volume 91.8, Mean Corpuscular Hemoglobin 31.9, Mean Corpuscular Hemoglobin Concent 34.7, Mean Platelet Volume 10.9, Neutrophils (%) (Auto) 33.7, Lymphocytes (%) (Auto) 56.0, Monocytes (%) (Auto) 6.6, Eosinophils (%) (Auto) 2.9, Basophils (%) (Auto) 0.7, Neutrophils # (Auto) 3.07, Lymphocytes # (Auto) 5.10, Monocytes # (Auto) 0.60, Eosinophils # (Auto) 0.26, Basophils # (Auto) 0.06 07/09/17 20:00 07/09/17 20:51 Test 07/09/17 20:00 07/09/17 20:51 White Blood Count 9.10 K/uL (4.8-10.8) Red Blood Count 4.39 M/uL (4.2-5.4) Hemoglobin 14.0 g/dL (12.0-16.0) Hematocrit 40.3 % (37-47) Mean Corpuscular Volume 91.8 fL (80-100) Mean Corpuscular Hemoglobin 31.9 pg (25-34) Mean Corpuscular Hemoglobin Concent 34.7 g/dl (32-36) Platelet Count 242 K/uL (130-400) Mean Platelet Volume 10.9 fL (7.4-10.4) Neutrophils (%) (Auto) 33.7 % Lymphocytes (%) (Auto) 56.0 % Monocytes (%) (Auto) 6.6 % Eosinophils (%) (Auto) 2.9 % Basophils (%) (Auto) 0.7 % Neutrophils # (Auto) 3.07 K/uL (1.4-6.5) Lymphocytes # (Auto) 5.10 K/uL (1.2-3.4) Monocytes # (Auto) 0.60 K/uL (0.11-0.59) Eosinophils # (Auto) 0.26 K/uL (0-0.5) Basophils # (Auto) 0.06 K/uL (0-0.2) RDW Standard Deviation 44.0 fL (36.4-46.3) RDW Coefficient of Variation 13.1 % (11.5-14.5) Immature Granulocyte % (Auto) 0.1 % Immature Granulocyte # (Auto) 0.01 K/uL (0.00-0.02) Anion Gap 6.0 mmol/L (3-11) Est Creatinine Clear Calc Drug Dose 112.2 ml/min Estimated GFR () 106.8 Estimated GFR (Non- 92.1 BUN/Creatinine Ratio 9.9 (10-20) Calcium Level 9.2 mg/dl (8.5-10.1) Total Bilirubin 0.2 mg/dl (0.2-1) Alanine Aminotransferase (ALT/SGPT) 19 U/L (12-78) Alkaline Phosphatase 76 U/L (45-117) Troponin I < 0.015 ng/ml (0-0.045) Total Protein 7.7 gm/dl (6.4-8.2) Albumin 4.2 gm/dl (3.4-5.0) Lipase 100 U/L (73-393) Magnesium Level 2.2 mg/dl (1.8-2.4) Direct Bilirubin < 0.1 mg/dl (0-0.2) Aspartate Amino Transf (AST/SGOT) 10 U/L (15-37) Total Creatine Kinase 92 U/L (26-192) Creatine Kinase MB 0.6 ng/ml (0.5-3.6) Creatine Kinase MB Ratio 0.7 (0-3.0) Thyroid Stimulating Hormone (TSH) 5.180 uIu/ml (0.300-4.500) Free Thyroxine 0.80 ng/dl (0.80-1.60) Labs reviewed by ED physician. Medications Administered Medications (Trade) Dose Ordered Sig/Franklin Route Start Time Stop Time Status Last Admin Dose Admin Aspirin (Aspirin Chew) 324 mg NOW STAT PO 07/09/17 19:59 07/09/17 20:00 DC 07/09/17 20:05 324 MG Morphine Sulfate (MoRPHine SULFATE INJ) 10 mg NOW STAT IV 07/09/17 19:59 07/09/17 20:00 DC 07/09/17 20:05 10 MG Sodium Chloride 1,000 ml @ 999 mls/hr Q1H1M STAT IV 07/09/17 20:14 07/09/17 21:14 DC 07/09/17 20:14 999 MLS/HR Metoclopramide HCl (Reglan Inj) 10 mg NOW STAT IV 07/09/17 20:17 9/14/17 20:18 DC 07/09/17 20:17 10 MG ECG Indication: chest pain Rate (beats per minute): 42 Rhythm: sinus bradycardia Findings: no acute ischemic change, other (2nd degree AV Block, Short QT) ED Course 1951: Past medical records reviewed. The patient was evaluated in room B04B. A complete history and physical examination was performed. 1958: Ordered Aspirin 324 mg PO. 2000: I discussed the patient's case with Ashlie Gruber Cardiology. He understands the patient's condition and agrees to come in to evaluate the patient. 2013: Ordered Sodium Chloride 1000 ml @ 999 mls/hr Iv. 2016: Ordered Reglan Injection 10 mg IV. 2050: I discussed the patient's case with Ashlie Escoto Hospitalist. He understands the patient's condition and agrees to accept the patient. The patient will be further evaluated. Medical Decision The differential diagnosis includes etiologies such as cardiac ischemia, aortic dissection, pulmonary embolism, pneumonia, pneumothorax, musculoskeletal, infections, pericarditis, myocarditis, esophageal rupture, gastrointestinal, as well as others were entertained. This is a 51-year-old female who presents emergency department complaining of chest pain. The patient relates that when her heart rate dropped below 60 she is having the chest pain. This was captured on EKG here in the emergency department. The patient appears to be alternating between his second and third degree block and a normal sinus rhythm. She was given 10 mg of morphine for the pain and given 324 mg of aspirin. I did discuss the case with Dr. Snyder who did agree to come in and see the patient. I did discuss the case also with the hospitalist who is going to admit the patient. Medication Reconcilliation Current Medication List: was personally reviewed by me Blood Pressure Screening Patient's blood pressure: Elevated blood pressure Referred to Hospitalist. Consults Time Called: 2000 Consulting Physician: Ashlie Gruber Cardiology Returned Call: 2000 I discussed the patient's case with Ashlie Gruber Cardiology. He understands the patient's condition and agrees to come in to evaluate the patient. Additional Consults: Time Called: 2050 Consulted Physician: Ashlie Escoto Hospitalist Returned Call: 2050 Additional Comments: I discussed the patient's case with Dr. Marquez, [facility] Hospitalist. He understands the patient's condition and agrees to accept the patient. The patient will be further evaluated. Impression Primary Impression: Chest pain Additional Impression: Bradycardia Scribe Attestation The scribe's documentation has been prepared under my direction and personally reviewed by me in its entirety. I confirm that the note above accurately reflects all work, treatment, procedures, and medical decision making performed by me. Departure Information Dispostion Being Evaluated By Hospitalist Referrals Megan Lujan M.D. (PCP) Patient Instructions My [facility] Problem Qualifiers Primary Impression: Chest pain Chest pain type: unspecified Qualified Codes: R07.9 - Chest pain, unspecified
[2017-07-09 20:36] LABS: BASO % 0.7 %; BASO ABS # 0.06 K/uL (0-0.2); COMPLETE YES; EOS % 2.9 %; IG% 0.1 %; MONO % 6.6 %; NEUT % 33.7 %
[2017-07-09 20:40] LABS: ALKALINE PHOSPHATASE 76 U/L (45-117); ALT/SGPT 19 U/L (12-78); BLOOD UREA NITROGEN 8 mg/dl (7-18); BUN/CREATININE RATIO 9.9 (10-20); CALCIUM 9.2 mg/dl (8.5-10.1); CARBON DIOXIDE 25 mmol/L (21-32); CHLORIDE 112 mmol/L (98-107); CREATININE 0.76 mg/dl (0.60-1.20); GLUCOSE 68 mg/dl (70-99); SODIUM 143 mmol/L (136-145)
[2017-07-09] MEDS ORDERED: DEXTROSE 50% 50 ML SYR IV ONE (21:00)
[2017-07-09 21:14] LABS: POTASSIUM 3.7 mmol/L (3.5-5.1)
[2017-07-09] MEDS ORDERED: DEXTROSE 50% 50 ML SYR ONE (21:15)
[2017-07-09] MEDS ORDERED: POTASSIUM CHLORIDE 10 MEQ TABCR PO STA (21:18)
[2017-07-09 21:24] LABS: AST/SGOT 10 U/L (15-37); CKMB/CK RATIO 0.7 (0-3.0)
[2017-07-09 21:30] LABS: MAGNESIUM 2.2 mg/dl (1.8-2.4); THYROID STIMULATING HORMONE 5.18 uIu/ml (0.300-4.500)
[2017-07-09] MEDS ORDERED: PROMETHAZINE HCL INJ 12.5 MG in SODIUM CHLORIDE 0.9% 50ML 50 ML IV PRN (21:45)
[2017-07-09] MEDS ORDERED: ACETAMINOPHEN 325 MG TAB PO PRN (21:45)
[2017-07-09] MEDS ORDERED: LORAZEPAM 2 MG/ML 1 ML VIAL IV PRN ×3 (21:45→23:00)
[2017-07-09] MEDS ORDERED: HYDROmorphone INJ 0.5 MG/0.5 ML SYR IV PRN ×2 (21:45→22:15)
[2017-07-09] MEDS ORDERED: D5W AND LACTATED RINGERS 1,000 ML IV SCH (21:45)
[2017-07-09] MEDS ORDERED: HYDROmorphone INJ 0.5 MG/0.5 ML SYR ONE (22:04)
[2017-07-09] MEDS ORDERED: LORAZEPAM 2 MG/ML 1 ML VIAL ONE (22:05)
[2017-07-09] MEDS ORDERED: FENTANYL 25 MCG/HR TDSY TD ONE (22:15)
[2017-07-09] MEDS ORDERED: HYDROmorphone INJ 1 MG/ML SYR ONE (22:16)
[2017-07-09] MEDS ORDERED: HYDROmorphone INJ 1 MG/ML SYR IV STA (22:20)
[2017-07-09] MEDS ORDERED: HYDROmorphone INJ 1 MG/ML SYR IV PRN (23:00)
[2017-07-09 23:16] VITALS: BP 100/66; PULSE 58; TEMP 36.5; O2SAT 96
[2017-07-09] MEDS ORDERED: FENTANYL 25 MCG/HR TDSY ONE (23:52)
[2017-07-09] MEDS: CHECK FENTANYL PATCH PLACEMENT SCH (23:58)
--- NOTE | 2017-07-09 23:58 | HISTORY & PHYSICAL EXAMINATION ---
DATE OF ADMISSION: 07/09/2017 PRIMARY CARE DOCTOR: Dr. Lujan. CHIEF COMPLAINT: Chest pain. HISTORY OF PRESENT ILLNESS: History obtained from patient and records. Medical history is significant for recent 2AV block, asthma, past tobacco abuse , hyperlipidemia, migraine. PX sustained L knee injury at work last month. Outpatient procedure for torn meniscus left knee canceled 2 weeks ago when she was developed a second degree type 2 AV block after conscious sedation. Left-sided squeezing chest discomfort occasionally goes back, transient, lasting minutes, daily symptoms, with some shortness of breath and fatigue symptoms. Outpatient Lyme screen, TSH normal. Px referred to [facility] Cardiology. Outpatient nuclear cardiac stress test negative. EF 65% Zio patch read still pending. Seen by [facility] EPS about 2 days ago. Bradyarrhythmia, possibly related to medications and untreated sleep apnea as per note. Consideration for stopping Topamax after pharmacy consultation. 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 Await Zio patch results, outpatient sleep study contemplated as per note. In the last 2 days worsening left-sided chest discomfort, coinciding with slow heart beat. Px brought to the emergency room. Cardiac rate going down to the 30s as per ER M.D. Chest pain symptoms coinciding with bradycardic episodes. Episodic complete heart block noted at some point as per ER M.D. MEDICAL HISTORY: As above. SURGICAL HISTORY: She had hysterectomy, orthopedic procedures. HOME MEDICATIONS: Include atorvastatin, Vicodin, Topamax, bupropion, rizatriptan, fluticasone, cetirizine, lorazepam, fish oil, lactase. ALLERGIES: ALCOHOL, BENGAY, DICLOFENAC, ETHANOL, LACTULOSE, TAPE, VOLTAREN. FAMILY HISTORY: Heart disease, hypertension, colon cancer, asthma. PERSONAL AND SOCIAL HISTORY: Recently stopped smoking. Occasional alcoholic beverage intake. [employer] employee. REVIEW OF SYSTEMS: As per HPI, all other ROS negative. PHYSICAL EXAMINATION: VITAL SIGNS: Blood pressure was noted to be 160/81, later 110/67; pulse rate of 64; RR 18; temperature 36.4; sats 99% on room air. GENERAL: Anxious, uncomfortable. Obese. SKIN: Normal color. HEENT: [place] palpebral conjunctivae. Dry mucosa. NECK: Short neck. LUNGS: Decreased breath sounds. HEART: Regular rate and rhythm. ABDOMEN: Some distention, nontender. EXTREMITIES: Minimal edema, no tenderness NEUROLOGIC: No gross focality. LABORATORY DATA: Hemoglobin 14, hematocrit 40.81, white cell count 9.1, platelets 242. Sodium 140, potassium 3.7, chloride 112, CO2 25, BUN 8, creatinine 0.7, glucose 68. TSH was noted to be 5.18. Chest x-ray showed no active disease. EKG as per my interpretation : rate 40, second degree AV block type 2, diffuse T-wave flattening. ASSESSMENT: 1. Symptomatic bradycardia 2AVB type 2 the last 2 weeks episodic 3AVB on tele noted at the ER as per ER MD Chest pain symptoms noted to coincide with bradycardic episodes during encounter. 2. migraine, stable on maintenance meds 3. Hyperlipidemia on statin Rx 4. past tobacco abuse. PLAN: PCU Transcutaneous pacing for now. (Analgesia, anxiolytics prn) Cardio consult RE symptomatic bradycardia, possible PPM placement. (ER provider already in touch with Dr. Snyder.) DVT prophylaxis, Lovenox subQ. Full code. MTDD
[2017-07-10] VITALS (16 sets, daily range): BP systolic 98–123; BP diastolic 56–82; PULSE 47–82; TEMP 36.5–36.7; O2SAT 93–100; Ht 170.2 cm; Wt 106.4 kg
[2017-07-10 00:37] LABS: LYME DISEASE AB IGG NEG (NEG); LYME DISEASE AB IGM NEG (NEG)
[2017-07-10] MEDS ORDERED: PNEUMOCOCCAL ADMINISTRATION CHARGE ONE (01:15)
[2017-07-10] MEDS ORDERED: PNEUMOCOCCAL POLYSACCHARIDES 25 MCG/0.5 ML VIAL/SYR IM. ONE (01:15)
[2017-07-10 06:36] LABS: BASO % 0.7 %; BASO ABS # 0.05 K/uL (0-0.2); COMPLETE YES; HEMATOCRIT 38.5 % (37-47); IG% 0.1 %; LYMPH % 43.9 %; LYMPH ABS # 3.25 K/uL (1.2-3.4); MEAN CELL VOLUME 93.2 fL (80-100); MEAN CORPUSCULAR HEMOGLOBIN 30.3 pg (25-34); MEAN CORPUSCULAR HGB CONC 32.5 g/dl (32-36); MONO % 8.2 %; NEUT % 44.1 %; PLATELET COUNT 203 K/uL (130-400); RED BLOOD COUNT 4.13 M/uL (4.2-5.4); WHITE BLOOD COUNT 7.41 K/uL (4.8-10.8)
[2017-07-10 06:47] LABS: PARTIAL THROMBOPLASTIN RATIO 1.1
[2017-07-10] MEDS: CHECK FENTANYL PATCH PLACEMENT SCH ×2 (08:00→16:23)
[2017-07-10] MEDS: ENOXAPARIN 40 MG/0.4 ML SYR SC SCH (09:00)
[2017-07-10] MEDS: DOCUSATE SODIUM 100 MG CAP PO SCH (09:00)
[2017-07-10] MEDS: BuPROPion SR 150 MG TABCR PO SCH ×2 (09:01→20:45)
[2017-07-10] MEDS: CETIRIZINE HCL 10 MG TAB PO SCH (09:02)
[2017-07-10] MEDS: TOPIRAMATE 25 MG TAB PO SCH ×2 (09:02→20:45)
[2017-07-10] MEDS: ATORVASTATIN 40 MG TAB PO SCH (09:02)
[2017-07-10] MEDS: HYDROCODONE/ACETAMOPHEN 5/325MG TAB PO PRN ×2 (09:08→19:48)
[2017-07-10 11:28] LABS: BUN/CREATININE RATIO 12.3 (10-20); CALCIUM 8.7 mg/dl (8.5-10.1); CREATININE 0.66 mg/dl (0.60-1.20); POTASSIUM 3.9 mmol/L (3.5-5.1)
[2017-07-10] MEDS ORDERED: KEFZOL SPECIAL PROCEDURE STOCK 1 GM ADDVIAL IV ONE (13:00)
[2017-07-10] MEDS ORDERED: FENTANYL CITRATE INJ 50 MCG/1 ML 2 ML VIAL ONE (13:01)
[2017-07-10] MEDS ORDERED: MIDAZOLAM HCL 5 MG/ML 1 ML VIAL ONE (13:01)
[2017-07-10] MEDS ORDERED: LIDOCAINE HCL 1% 20 ML VIAL ONE ×2 (13:02→13:26)
[2017-07-10] MEDS ORDERED: BACITRACIN 50000 UNIT VIAL ONE (13:03)
[2017-07-10] MEDS ORDERED: BUPIVACAINE 0.5 % 5 MG/1 ML MPF 30ML VIAL ONE (13:03)
--- NOTE | 2017-07-10 13:15 | Procedure Note ---
Pre-Mod Sedation Assessment General Date of Moderate Sedation: Jul 10, 2017. Vital Signs: Vital Signs Past 12 Hours Date Time Temp Pulse Resp B/P (MAP) Pulse Ox O2 Delivery O2 Flow Rate FiO2 07/10/17 12:47 36.7 64 18 115/76 99 Room Air 07/10/17 11:55 36.7 64 18 115/76 (89) 99 Room Air 07/10/17 08:00 Room Air 07/10/17 07:39 36.7 64 18 123/73 (90) 99 Room Air 07/10/17 04:00 36.7 54 20 109/73 (85) 95 Room Air 07/10/17 04:00 Room Air Review Cardiovascular: + irregularly irregular Lungs: lungs clear Airway Class: III Pre-Sedation Airway Assessment Oral Cavity: WNL Able to Visualize Vocal Cords: No Short Thick Neck: No Hx of Sleep Apnea: No Smoking Status: Current Every Day Smoker Mallampati Classification: Class III ASA Classification: Class III Procedure Planning Contraindications-for Mod Sed: None Yes Notes The planned sedation has been discussed with the patient and consent obtained. I have identified the patient, determined the appropriateness of sedation and have assessed the patient immediately prior to the procedure. All medicine(s) and interventions are by my order.
--- NOTE | 2017-07-10 15:18 | CARDIOLOGY CONSULTATION ---
DATE OF CONSULTATION: 07/10/2017 DATE OF CONSULTATION: 07/10/2017 CONSULTATION FOR: [facility] service. REASON FOR CONSULTATION: Heart block. HISTORY OF PRESENT ILLNESS: This is a 51-year-old female whom I am seeing post permanent pacemaker insertion. She generally has been followed by Dr. Weaver as well as Dr. Martin from our practice. She has symptomatic Mobitz type 2 heart block. Generally she develops chest discomfort when she has a heart block. She presented to the Emergency Department with chest pain. It was noted to be in a Mobitz type 2 heart block with bigeminal pattern. As an outpatient, she has been worked up with a pharmacologic nuclear stress test earlier in the month that was negative. It should be noted that after the Lexiscan she developed her typical symptoms with the heart block, but the nuclear portion of the study was negative. After her admission here we asked Dr. Peters from the [facility] group to consider permanent pacemaker. She felt the procedure was indicated and she is now post-procedure and has no complaints. ALLERGIES: ALCOHOL, BENGAY, DICLOFENAC, ETHANOL, LACTULOSE, TAPE AND VOLTAREN. PAST MEDICAL HISTORY: Other than what is contained in the history of chief complaint, she has no significant past medical history other than hyperlipidemia, migraine headaches and mild asthma. SOCIAL HISTORY: She is not currently a smoker. She works at [employer] with her . FAMILY MEDICAL HISTORY: Noncontributory. REVIEW OF SYSTEMS: A 10-point review of systems is negative except for the history of chief complaint. PHYSICAL EXAMINATION: GENERAL: She is alert and oriented, still under the effects of sedation due to the pacemaker procedure. VITAL SIGNS: Blood pressure is 105/70, pulse is regular at 60 beats per minute. She is afebrile. HEAD, EYES, EARS, NOSE, AND THROAT: She is normocephalic. Pupils are equal and reactive to light. Extraocular muscles are intact bilaterally. NECK: The neck veins are flat. Carotids have good upstrokes bilaterally without bruits. Thyroid is nonpalpable. RESPIRATORY: Breath sounds equal bilaterally and clear to auscultation. CARDIOVASCULAR: Heart has a regular rhythm. Normal S1, S2. No S3, S4. No cardiac rubs or murmurs. GASTROINTESTINAL: Abdomen is soft, nontender without organomegaly. EXTREMITIES: Free of edema, digit clubbing, or cyanosis. NEUROLOGIC: Grossly intact. SKIN: Warm to touch. LYMPH NODES: Negative to palpation. LABORATORY DATA: Hemoglobin is 12.5, potassium is 3.9, creatinine is 0.66. Cardiac troponins are negative. IMPRESSION: 1. Mobitz type 2 heart block which is symptomatic causing chest pain. 2. Status post permanent pacemaker. RECOMMENDATIONS: As outlined above, the patient is status post permanent pacemaker. She will be with us tonight. She will have her pacemaker interrogated in the morning and if all goes well she could possibly be discharged tomorrow.
[2017-07-10] MEDS ORDERED: NURSING VERBAL MED ORDER ONE ×2 (16:30→18:30)
[2017-07-10] MEDS: ONDANSETRON INJ 2 MG/ML 2 ML VIAL IV PRN ×2 (16:33→21:50)
--- NOTE | 2017-07-10 16:54 | Cardiology Consultation ---
Cardiology Consultation Date of Consultation: Jul 10, 2017. Requesting Physician: Mario Reason for Consultation: Heart Block History of Present Illness The patient is a 51-year-old woman with a history of heart block and recent episodes of chest discomfort. Patient states that several months ago she began to experience episodes of severe chest discomfort. He is often appear to be associated with episodes of 2-1 heart block. The episodes themselves appear to occur quite randomly. They are not associated with any activity or change in position. Often times the symptoms occur at night. They often will last for approximately 10 minutes and resolved without any particular intervention. The chest pain can be quite severe at times. Patient states there are occasionally some associated symptoms of dizziness and mild dyspnea. These are not universally present. She has not suffered any syncope. She has no exertional symptoms. She does report having some difficulty with exercise in the recent past. Earlier this year she had attempted vigorous exercise and was noted to have significant dyspnea and exercise intolerance with a documented low heart rate. More recently she has been impaired by left knee discomfort. When she went for a left knee procedure she was noted to be in 2-1 heart block and the procedure was canceled. Yesterday evening the patient experienced an episode of severe chest discomfort that was prolonged in nature. She presented to [facility] for an evaluation and was discovered to be in 2-1 heart block. The patient had some resultant bradycardia and was actually treated with a transcutaneous pacemaker. At the time of this interview the patient is fairly somnolent due to analgesics which had been administered. She does not report overt chest discomfort currently. She has not report breathing difficulty at this time. Past Medical/Surgical History Asthma Migraine headaches Knee pain Hyperlipidemia Surgical history Hysterectomy Right knee operation Family History Cancer Diabetes mellitus Gallbladder disease Heart disease Hypertension Kidney disease Kidney stones Lung disease No premature coronary disease Social History Smoking Status: Current Every Day Smoker History of Alcohol Use: Yes (infrequently) Review of Systems Constitutional: + see HPI Respiratory: + see HPI Cardiac: + see HPI Abdomen: + see HPI Female : + see HPI Neurologic: + see HPI Heme: + see HPI Endo: + see HPI Skin: + see HPI All Other Systems: Reviewed and Negative Allergies Coded Allergies: Dextromethorphan (Verified Allergy, Intermediate, Hives, 07/09/17) Ethanol (Verified Allergy, Intermediate, Hives, 07/09/17) Latex (Verified Allergy, Intermediate, Hives, 07/09/17) Adhesives (Verified Allergy, Mild, 07/09/17) Diclofenac (Verified Allergy, Mild, 07/09/17) Doxylamine (Verified Allergy, Mild, 07/09/17) Pseudoephedrine (Verified Allergy, Mild, 07/09/17) Medications Current Inpatient Medications Medications (Trade) Dose Ordered Sig/Franklin Route Start Time Stop Time Status Last Admin Dose Admin Enoxaparin Sodium (Lovenox Inj) 40 mg Q24H SC 07/10/17 08:00 08/09/17 07:59 07/10/17 09:00 40 MG Acetaminophen (Tylenol Tab) 650 mg Q4H PRN PO 07/09/17 21:45 08/08/17 21:44 Atorvastatin Calcium (Lipitor Tab) 40 mg QAM PO 07/10/17 09:00 08/09/17 08:59 07/10/17 09:02 40 MG Bupropion HCl (Wellbutrin-Sr Tab) 150 mg BID PO 07/10/17 09:00 08/09/17 08:59 07/10/17 09:01 150 MG Cetirizine HCl (zyrTEC TAB) 10 mg DAILY PO 07/10/17 09:00 08/09/17 08:59 07/10/17 09:02 10 MG Acetaminophen/ Hydrocodone Bitart ([place] 5/325 Tab) pain not relieved by tyle... Q4H PRN PO 07/09/17 21:45 07/23/17 21:44 07/10/17 09:08 1 TAB Topiramate (Topamax Tab) 50 mg BID PO 07/10/17 09:00 08/09/17 08:59 07/10/17 09:02 50 MG Promethazine HCl 12.5 mg/Sodium Chloride 50.5 ml @ 204 mls/hr Q6H PRN IV 07/09/17 21:45 08/08/17 21:44 Dextrose/Lactated Ringer's 1,000 ml @ 50 mls/hr Q20H IV 07/09/17 21:45 08/08/17 21:44 07/09/17 23:48 50 MLS/HR Hydromorphone HCl (Dilaudid Inj) 1 mg Q2H PRN IV 07/09/17 23:00 07/23/17 22:14 07/10/17 03:59 1 MG Fentanyl (Duragesic Patch) 25 mcg Q3D@2100 TD 07/12/17 21:00 07/26/17 20:59 Miscellaneous (Fentanyl Patch Remove & Waste) 1 ea Q3D@2059 N/A 07/12/17 20:59 08/11/17 20:58 Miscellaneous Information (Check Fentanyl Patch Placement) 1 ea QS N/A 07/10/17 00:00 08/09/17 00:00 07/10/17 16:23 1 EA Docusate Sodium (coLACE CAP) 100 mg DAILY PO 07/10/17 09:00 08/09/17 08:59 07/10/17 09:00 100 MG Lorazepam (Ativan Inj) 1 mg Q2H PRN IV 07/09/17 23:00 08/08/17 21:44 Cefazolin Sodium 2000 mg/Dextrose 60 ml @ 100 mls/hr Q8H IV 07/10/17 22:00 07/11/17 06:35 Ondansetron HCl (Zofran Inj) 4 mg Q6H PRN IV 07/10/17 16:30 08/09/17 16:29 07/10/17 16:33 4 MG Physical Exam Vital Signs Past 12 Hours Date Time Temp Pulse Resp B/P (MAP) Pulse Ox O2 Delivery O2 Flow Rate FiO2 07/10/17 16:38 67 20 120/75 (90) 94 Room Air 07/10/17 16:00 100 Room Air 07/10/17 15:33 63 16 98/67 (77) 93 Room Air 07/10/17 15:19 60 16 101/66 (78) 96 Room Air 07/10/17 15:03 74 16 109/80 (90) 99 Room Air 07/10/17 14:49 66 18 116/56 (76) 98 Room Air 07/10/17 14:37 36.5 68 16 103/69 (80) 100 Room Air 07/10/17 14:20 72 14 104/65 (78) 95 Room Air 07/10/17 14:10 72 14 134/95 (108) 95 Room Air 07/10/17 12:47 36.7 64 18 115/76 99 Room Air 07/10/17 12:00 Room Air 07/10/17 11:55 36.7 64 18 115/76 (89) 99 Room Air 07/10/17 08:00 Room Air 07/10/17 07:39 36.7 64 18 123/73 (90) 99 Room Air She is somnolent but oriented x3. She answered all questions appropriately. HEENT: Sclerae are anicteric. Pupils are equal and reactive to light and accommodation. Extraocular movements were intact. Neuro: Cranial nerves intact Neck: Examination of the submandibular region did not reveal any significant lymphadenopathy. Carotids are palpable bilaterally and free of bruits on auscultation. There was no evidence of jugular venous distention. The thyroid was not enlarged. Lungs: Lungs are clear to auscultation bilaterally. There are no rales wheezes or rhonchi. She has normal respiratory effort without use of accessory muscles. There is normal pulmonary excursion. Cardiac: Heart tones are distant. The rhythm was regular. S1 and S2 were normal. There are no murmurs on examination. The PMI was not markedly displaced on palpation. Abdomen: The abdomen was soft and nontender. Extremities: Patient has bilateral radial pulses that are equal in intensity. There is no evidence cyanosis or clubbing. There was no evidence of significant peripheral edema bilaterally. Skin: There are no rashes noted on examination today. Data Laboratory Results: Last 24 Hours Test 07/09/17 20:00 07/09/17 20:51 07/09/17 23:09 07/09/17 23:15 White Blood Count 9.10 K/uL Red Blood Count 4.39 M/uL Hemoglobin 14.0 g/dL Hematocrit 40.3 % Mean Corpuscular Volume 91.8 fL Mean Corpuscular Hemoglobin 31.9 pg Mean Corpuscular Hemoglobin Concent 34.7 g/dl Platelet Count 242 K/uL Mean Platelet Volume 10.9 fL Neutrophils (%) (Auto) 33.7 % Lymphocytes (%) (Auto) 56.0 % Monocytes (%) (Auto) 6.6 % Eosinophils (%) (Auto) 2.9 % Basophils (%) (Auto) 0.7 % Neutrophils # (Auto) 3.07 K/uL Lymphocytes # (Auto) 5.10 K/uL Monocytes # (Auto) 0.60 K/uL Eosinophils # (Auto) 0.26 K/uL Basophils # (Auto) 0.06 K/uL RDW Standard Deviation 44.0 fL RDW Coefficient of Variation 13.1 % Immature Granulocyte % (Auto) 0.1 % Immature Granulocyte # (Auto) 0.01 K/uL Sodium Level 143 mmol/L Potassium Level mmol/L 3.7 mmol/L Chloride Level 112 mmol/L Carbon Dioxide Level 25 mmol/L Anion Gap 6.0 mmol/L Blood Urea Nitrogen 8 mg/dl Creatinine 0.76 mg/dl Est Creatinine Clear Calc Drug Dose 112.2 ml/min Estimated GFR () 106.8 Estimated GFR (Non- 92.1 BUN/Creatinine Ratio 9.9 Random Glucose 68 mg/dl Calcium Level 9.2 mg/dl Total Bilirubin 0.2 mg/dl Direct Bilirubin mg/dl < 0.1 mg/dl Aspartate Amino Transf (AST/SGOT) U/L 10 U/L Alanine Aminotransferase (ALT/SGPT) 19 U/L Alkaline Phosphatase 76 U/L Total Creatine Kinase U/L 92 U/L Creatine Kinase MB < 0.5 ng/ml 0.6 ng/ml Creatine Kinase MB Ratio 0.7 Troponin I < 0.015 ng/ml Total Protein 7.7 gm/dl Albumin 4.2 gm/dl Lipase 100 U/L Magnesium Level 2.2 mg/dl Thyroid Stimulating Hormone (TSH) 5.180 uIu/ml Free Thyroxine 0.80 ng/dl Lyme Disease IgG Antibody NEG Lyme Disease IgM Antibody NEG Bedside Glucose 91 mg/dl Test 07/10/17 06:09 07/10/17 06:56 07/10/17 10:41 White Blood Count 7.41 K/uL Red Blood Count 4.13 M/uL Hemoglobin 12.5 g/dL Hematocrit 38.5 % Mean Corpuscular Volume 93.2 fL Mean Corpuscular Hemoglobin 30.3 pg Mean Corpuscular Hemoglobin Concent 32.5 g/dl Platelet Count 203 K/uL Mean Platelet Volume 11.0 fL Neutrophils (%) (Auto) 44.1 % Lymphocytes (%) (Auto) 43.9 % Monocytes (%) (Auto) 8.2 % Eosinophils (%) (Auto) 3.0 % Basophils (%) (Auto) 0.7 % Neutrophils # (Auto) 3.27 K/uL Lymphocytes # (Auto) 3.25 K/uL Monocytes # (Auto) 0.61 K/uL Eosinophils # (Auto) 0.22 K/uL Basophils # (Auto) 0.05 K/uL RDW Standard Deviation 45.4 fL RDW Coefficient of Variation 13.3 % Immature Granulocyte % (Auto) 0.1 % Immature Granulocyte # (Auto) 0.01 K/uL Prothrombin Time 11.0 SECONDS Prothromb Time International Ratio 1.0 Activated Partial Thromboplast Time 28.5 SECONDS Partial Thromboplastin Ratio 1.1 Troponin I < 0.015 ng/ml Bedside Glucose 91 mg/dl Sodium Level 143 mmol/L Potassium Level 3.9 mmol/L Chloride Level 112 mmol/L Carbon Dioxide Level 28 mmol/L Anion Gap 3.0 mmol/L Blood Urea Nitrogen 8 mg/dl Creatinine 0.66 mg/dl Est Creatinine Clear Calc Drug Dose 129.6 ml/min Estimated GFR () 120.2 Estimated GFR (Non- 103.7 BUN/Creatinine Ratio 12.3 Random Glucose 102 mg/dl Calcium Level 8.7 mg/dl Magnesium Level 2.0 mg/dl Patient is known to have had a recent cardiac perfusion study which did not demonstrate ischemia. She had preserved LV systolic function on that study. She did have some symptoms and documented heart block. Outpatient evaluation included Lyme titers and thyroid studies. These were normal Assessment & Plan 1. Heart block: Most of the recorded events are 2-1 heart block. However there was 1 EKG which demonstrates evidence of Mobitz 2 conduction. She also describes circumstances in which she may have developed heart block during exercise. This involves episodes of exertion with notable symptoms but a low heart rate. This would be consistent with Mobitz 2 conduction. She also appears to have some symptoms associated with the relative bradycardia. The association between her chest pain in the arrhythmia is well established, but the mechanism of her discomfort is unclear. Based on her symptomatic bradycardia in the setting of what is believed to be a Mobitz 2 heart block it would seem reasonable to consider a pacemaker for therapy. 2. Chest pain: This is of unclear etiology. There is clearly a temporal association between the heart block and chest pain but the mechanism of her discomfort is unclear. I think there is a reasonable possibility that the severe pain causes increased vagal output and possibly result in heart block. I was very explicit with the patient and her regarding the unknown response of her chest pain to permanent pacing. I felt confident we could eliminate the conduction abnormality with the pacemaker but its affect on her chest pain is less clear. We had an extensive discussion and based on the severe and recurrent nature of her symptoms she is willing to undergo pacemaker placement primarily for treatment of her known conduction disease. The hope is that this will also attenuate her symptoms of chest discomfort.
--- NOTE | 2017-07-10 18:56 | Procedure Note ---
Procedure Note Date of Service Jul 10, 2017. 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 She also has an element of heart block characterizes Mobitz 2. Based on the conduction disease as well as result of bradycardia she was felt to be a reasonable candidate for permanent pacemaker due to symptomatic non reversible AV georgi dysfunction. A dual-chamber device was selected as the patient is currently in sinus rhythm which to maintain AV synchrony. The patient was informed of the risks benefits and alternatives to the intended procedure and she wished to proceed. She was taken to the electrophysiology suite in a fasting state. A preoperative antibiotic had been administered. The patient was monitored electrocardiographically throughout today's procedure and conscious sedation was administered per protocol. The left upper pectoral area is prepped and draped in usual sterile fashion. This area was anesthetized using subcutaneous menstruation of a xylocaine solution. An incision was made at this site and carried down to the prepectoralis fascia using sharp dissection. Electrocautery was also employed for dissection as well as for hemostasis. A device pocket was fashioned tissues above the pectoralis muscle. Subsequent to this maneuver the left axillary vein was accessed using modified Seldinger technique. Sheaths were placed over guidewires at this site use salt a passage of the pacing leads to the respective chambers under fluoroscopic guidance. This included right atrial and right ventricular leads. Adequate sensing and threshold parameters were obtained prior to Active fixation of the leads to the endocardial surface. The proximal portion leads were then sutured the prepectoral fascia using nonabsorbable suture. The device pocket was irrigated with antibiotic solution. The leads were then attached to the device. The device and leads were then placed in the pocket and pocket was closed in 3 layers of absorbable suture. Steri-Strips and sterile dressing were applied. The device was tested noninvasively prior to conclusion of the procedure. The patient tolerated procedure well there no immediate complications. Equipment used: Pulse generator: [employer]. Model number A2DR01. Serial number [id number] Right atrial lead: Program [employer]. Model 4. 076. Serial number [id number] Right ventricular lead: [employer]. Model 4. 076. Serial number [id number] Measured data: Right ventricular lead: R-waves measured 13.5 mV. Pacing threshold 0.75 volts at 0.4 milliseconds with a pacing impedance of 817 Ohms Right atrial lead: P-waves measure 1.1 mV. Pacing threshold was 0.25 volts at 0.4 milliseconds with a pacing impedance of 456 Ohms Impression: Successful implantation of dual-chamber permanent pacemaker
--- NOTE | 2017-07-10 19:01 | Progress Note ---
Internal Med Progress Note Date of Service: Jul 10, 2017. Provider Documentation: SUBJECTIVE: The patient was seen and examined Still has the chest pain but no associated symptoms OBJECTIVE: Vital Signs-as noted below Exam: General-Moderate distress at rest Eyes-normal ENT-normal Neck-supple Lungs-clear to auscultate bilaterally Heart-Regular,slow heart rate Abdomen-Benign,no masses Extremities-No edema Neuro-AAOx3 Lab data as noted below. ASSESSMENT & PLAN: Symptomatic bradycardia Secondary to 2nd Degree AVB -type 2 for the last the last 2 weeks Episodic 3AVB on tele noted at the ER as per ER MD Ongoing Chest pain with episodes of Bradycardia Transcutaneous pacing for now. (Analgesia, anxiolytics prn) Appreciate cardiology input S/P PPM Migraine, stable on maintenance meds Stable Hyperlipidemia on statin Rx BP controlled Past tobacco abuse. 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 Full code. Vital Signs: Date Time Temp Pulse Resp B/P (MAP) Pulse Ox O2 Delivery O2 Flow Rate FiO2 07/10/17 16:38 67 20 120/75 (90) 94 Room Air 07/10/17 16:00 100 Room Air 07/10/17 15:33 63 16 98/67 (77) 93 Room Air 07/10/17 15:19 60 16 101/66 (78) 96 Room Air 07/10/17 15:03 74 16 109/80 (90) 99 Room Air 07/10/17 14:49 66 18 116/56 (76) 98 Room Air 07/10/17 14:37 36.5 68 16 103/69 (80) 100 Room Air 07/10/17 14:20 72 14 104/65 (78) 95 Room Air 07/10/17 14:10 72 14 134/95 (108) 95 Room Air 07/10/17 12:47 36.7 64 18 115/76 99 Room Air 07/10/17 12:00 Room Air 07/10/17 11:55 36.7 64 18 115/76 (89) 99 Room Air 07/10/17 08:00 Room Air 07/10/17 07:39 36.7 64 18 123/73 (90) 99 Room Air 07/10/17 04:00 36.7 54 20 109/73 (85) 95 Room Air 07/10/17 04:00 Room Air 07/10/17 00:06 36.7 47 16 115/74 94 Room Air 07/10/17 00:00 Room Air 07/09/17 23:16 36.5 58 19 100/66 (77) 96 Room Air 07/09/17 22:22 60 18 107/62 93 Room Air 07/09/17 22:22 60 18 107/62 94 Room Air 07/09/17 21:07 99 Room Air 07/09/17 21:07 99 Room Air 07/09/17 21:05 64 18 110/67 99 Room Air 07/09/17 20:01 57 07/09/17 19:41 36.7 58 18 163/81 100 Room Air Lab Results: Results Past 24 Hours Test 07/09/17 20:00 07/09/17 20:51 07/09/17 23:09 07/09/17 23:15 Range/Units White Blood Count 9.10 4.8-10.8 K/uL Red Blood Count 4.39 4.2-5.4 M/uL Hemoglobin 14.0 12.0-16.0 g/dL Hematocrit 40.3 37-47 % Mean Corpuscular Volume 91.8 80-100 fL Mean Corpuscular Hemoglobin 31.9 25-34 pg Mean Corpuscular Hemoglobin Concent 34.7 32-36 g/dl Platelet Count 242 130-400 K/uL Mean Platelet Volume 10.9 7.4-10.4 fL Neutrophils (%) (Auto) 33.7 % Lymphocytes (%) (Auto) 56.0 % Monocytes (%) (Auto) 6.6 % Eosinophils (%) (Auto) 2.9 % Basophils (%) (Auto) 0.7 % Neutrophils # (Auto) 3.07 1.4-6.5 K/uL Lymphocytes # (Auto) 5.10 1.2-3.4 K/uL Monocytes # (Auto) 0.60 0.11-0.59 K/uL Eosinophils # (Auto) 0.26 0-0.5 K/uL Basophils # (Auto) 0.06 0-0.2 K/uL RDW Standard Deviation 44.0 36.4-46.3 fL RDW Coefficient of Variation 13.1 11.5-14.5 % Immature Granulocyte % (Auto) 0.1 % Immature Granulocyte # (Auto) 0.01 0.00-0.02 K/uL Sodium Level 143 136-145 mmol/L Potassium Level 3.7 3.5-5.1 mmol/L Chloride Level 112 98-107 mmol/L Carbon Dioxide Level 25 21-32 mmol/L Anion Gap 6.0 3-11 mmol/L Blood Urea Nitrogen 8 7-18 mg/dl Creatinine 0.76 0.60-1.20 mg/dl Est Creatinine Clear Calc Drug Dose 112.2 ml/min Estimated GFR () 106.8 Estimated GFR (Non- 92.1 BUN/Creatinine Ratio 9.9 10-20 Random Glucose 68 70-99 mg/dl Calcium Level 9.2 8.5-10.1 mg/dl Total Bilirubin 0.2 0.2-1 mg/dl Direct Bilirubin < 0.1 0-0.2 mg/dl Aspartate Amino Transf (AST/SGOT) 10 15-37 U/L Alanine Aminotransferase (ALT/SGPT) 19 12-78 U/L Alkaline Phosphatase 76 45-117 U/L Total Creatine Kinase 92 26-192 U/L Creatine Kinase MB < 0.5 0.6 0.5-3.6 ng/ml Creatine Kinase MB Ratio 0.7 0-3.0 Troponin I < 0.015 0-0.045 ng/ml Total Protein 7.7 6.4-8.2 gm/dl Albumin 4.2 3.4-5.0 gm/dl Lipase 100 73-393 U/L Magnesium Level 2.2 1.8-2.4 mg/dl Thyroid Stimulating Hormone (TSH) 5.180 0.300-4.500 uIu/ml Free Thyroxine 0.80 0.80-1.60 ng/dl Lyme Disease IgG Antibody NEG NEG Lyme Disease IgM Antibody NEG NEG Bedside Glucose 91 70-90 mg/dl Test 07/10/17 06:09 07/10/17 06:56 07/10/17 10:41 Range/Units White Blood Count 7.41 4.8-10.8 K/uL Red Blood Count 4.13 4.2-5.4 M/uL Hemoglobin 12.5 12.0-16.0 g/dL Hematocrit 38.5 37-47 % Mean Corpuscular Volume 93.2 80-100 fL Mean Corpuscular Hemoglobin 30.3 25-34 pg Mean Corpuscular Hemoglobin Concent 32.5 32-36 g/dl Platelet Count 203 130-400 K/uL Mean Platelet Volume 11.0 7.4-10.4 fL Neutrophils (%) (Auto) 44.1 % Lymphocytes (%) (Auto) 43.9 % Monocytes (%) (Auto) 8.2 % Eosinophils (%) (Auto) 3.0 % Basophils (%) (Auto) 0.7 % Neutrophils # (Auto) 3.27 1.4-6.5 K/uL Lymphocytes # (Auto) 3.25 1.2-3.4 K/uL Monocytes # (Auto) 0.61 0.11-0.59 K/uL Eosinophils # (Auto) 0.22 0-0.5 K/uL Basophils # (Auto) 0.05 0-0.2 K/uL RDW Standard Deviation 45.4 36.4-46.3 fL RDW Coefficient of Variation 13.3 11.5-14.5 % Immature Granulocyte % (Auto) 0.1 % Immature Granulocyte # (Auto) 0.01 0.00-0.02 K/uL Prothrombin Time 11.0 9.0-12.0 SECONDS Prothromb Time International Ratio 1.0 0.9-1.1 Activated Partial Thromboplast Time 28.5 21.0-31.0 SECONDS Partial Thromboplastin Ratio 1.1 Troponin I < 0.015 0-0.045 ng/ml Bedside Glucose 91 70-90 mg/dl Sodium Level 143 136-145 mmol/L Potassium Level 3.9 3.5-5.1 mmol/L Chloride Level 112 98-107 mmol/L Carbon Dioxide Level 28 21-32 mmol/L Anion Gap 3.0 3-11 mmol/L Blood Urea Nitrogen 8 7-18 mg/dl Creatinine 0.66 0.60-1.20 mg/dl Est Creatinine Clear Calc Drug Dose 129.6 ml/min Estimated GFR () 120.2 Estimated GFR (Non- 103.7 BUN/Creatinine Ratio 12.3 10-20 Random Glucose 102 70-99 mg/dl Calcium Level 8.7 8.5-10.1 mg/dl Magnesium Level 2.0 1.8-2.4 mg/dl
[2017-07-10] MEDS: CEFAZOLIN IV 2,000 MG in DEXTROSE 5% 50ML 50 ML IV SCH (21:50)
[2017-07-11] MEDS: HYDROCODONE/ACETAMOPHEN 5/325MG TAB PO PRN ×2 (02:10→08:16)
[2017-07-11 04:00] VITALS: BP 108/76; PULSE 65; TEMP 36.5; O2SAT 95
[2017-07-11] MEDS ORDERED: CEFAZOLIN SOD 1000MG/55 ML D5W IV SCH (06:00)
[2017-07-11] MEDS: CEFAZOLIN IV 2,000 MG in DEXTROSE 5% 50ML 50 ML IV SCH (06:07)
[2017-07-11 07:07] LABS: BUN/CREATININE RATIO 12.1 (10-20); CREATININE 0.7 mg/dl (0.60-1.20); MAGNESIUM 2.1 mg/dl (1.8-2.4); POTASSIUM 3.8 mmol/L (3.5-5.1)
[2017-07-11 07:19] VITALS: BP 98/67; PULSE 64; TEMP 36.6; O2SAT 96
[2017-07-11] MEDS: ENOXAPARIN 40 MG/0.4 ML SYR SC SCH (07:38)
[2017-07-11] MEDS: DOCUSATE SODIUM 100 MG CAP PO SCH (07:38)
[2017-07-11] MEDS: ATORVASTATIN 40 MG TAB PO SCH (07:39)
[2017-07-11] MEDS: BuPROPion SR 150 MG TABCR PO SCH (07:39)
[2017-07-11] MEDS: CETIRIZINE HCL 10 MG TAB PO SCH (07:39)
[2017-07-11] MEDS: TOPIRAMATE 25 MG TAB PO SCH (07:39)
[2017-07-11 08:00] VITALS: O2SAT 96
--- NOTE | 2017-07-11 08:14 | DIAGNOSTIC IMAGING REPORT ---
CHEST 2 VIEWS ROUTINE CLINICAL HISTORY: Chest x-ray status post pacemaker placement COMPARISON STUDY: 07/09/2017 FINDINGS: The cardiac and mediastinal contours are normal. There has been interval placement of a left subclavian dual-chamber central venous pacemaker. Electrodes position is unremarkable conventional radiographic imaging. No pneumothorax is visualized. There is no failure. There is no focal pulmonary consolidation.[ IMPRESSION: No active disease in the chest. Interval placement of a left subclavian dual-chamber central venous pacemaker. Electronically signed by: Augustin Beach M.D. 07/11/2017 8:12 AM Dictated Date/Time: 07/11/2017 8:12 AM
--- NOTE | 2017-07-11 08:15 | Cardiology Follow-Up ---
Subjective Date of Service: Jul 11, 2017. Pt evaluation today including: conversation w/ patient, physical exam, review of studies History of Present Illness This morning the patient claims to be feeling better overall. He states that the nausea she had last evening has resolved. She has a good appetite and finished her breakfast. She has minor discomfort at the implant site. She has no symptoms of chest discomfort. She states she is breathing better and can finally take a deep breath. She has not had any recurrence of her index chest pain. Social History Smoking Status: Current Every Day Smoker History of Alcohol Use: Yes (infrequently) Review of Systems Respiratory: + see HPI Cardiac: + see HPI Objective Vital Signs Past 12 Hours Date Time Temp Pulse Resp B/P (MAP) Pulse Ox O2 Delivery O2 Flow Rate FiO2 07/11/17 07:19 36.6 64 20 98/67 (77) 96 Room Air 07/11/17 04:13 Room Air 07/11/17 04:00 36.5 65 18 108/76 (87) 95 Room Air 07/11/17 00:00 Room Air 07/10/17 22:55 36.7 69 20 115/82 (93) 97 Room Air Last Recorded Weight-Kilograms: 106.400 Physical Exam Evaluation of the implant site reveals an intact incision. There is no drainage. There is no erythema or evidence of hematoma. There is no ecchymosis. Data Laboratory Results: Last 24 Hours Test 07/10/17 10:41 07/11/17 06:10 Sodium Level 143 mmol/L 141 mmol/L Potassium Level 3.9 mmol/L 3.8 mmol/L Chloride Level 112 mmol/L 108 mmol/L Carbon Dioxide Level 28 mmol/L 26 mmol/L Anion Gap 3.0 mmol/L 7.0 mmol/L Blood Urea Nitrogen 8 mg/dl 9 mg/dl Creatinine 0.66 mg/dl 0.70 mg/dl Est Creatinine Clear Calc Drug Dose 129.6 ml/min 122.1 ml/min Estimated GFR () 120.2 117.9 Estimated GFR (Non- 103.7 101.7 BUN/Creatinine Ratio 12.3 12.1 Random Glucose 102 mg/dl 84 mg/dl Calcium Level 8.7 mg/dl 9.0 mg/dl Magnesium Level 2.0 mg/dl 2.1 mg/dl Imaging: Chest x-ray reveals stable lead position with some loss of redundancy. No pneumothorax Telemetry reviewed: Patient has primarily atrial sensed ventricular paced rhythm. I performed a complete device interrogation which revealed normal sensing and thresholds on both leads. Impedances are stable. Normal device function. Assessment and Plan 1. Heart block: She appears to have undergone a successful dual-chamber pacemaker implant. She does have continuous ventricular pacing. During her device interrogation she did have 1-1 conduction at times. Adjustment of the device on an outpatient basis may be required in order to promote intrinsic ventricular conduction. Today she was left in a DDD mode. Otherwise, there is not appear to be any immediate complication from her implant. I advised her to keep the wound dry and Steri-Strips intact until follow-up on an outpatient basis. This could be accomplished early next week. I also suggested she refrain from lifting her left arm above her shoulder or behind her neck for 6 weeks time.
[2017-07-11 09:00] VITALS: BP 167/71; PULSE 35; TEMP 36.5; O2SAT 99
--- NOTE | 2017-07-11 09:52 | Progress Note ---
Internal Med Progress Note Date of Service: Jul 11, 2017. Provider Documentation: SUBJECTIVE: The patient was seen and examined Still has the chest pain but no associated symptoms S/P Dual Chamber PPM placed yesterday Doing well following the procedure Ready to go home today OBJECTIVE: Vital Signs-as noted below Exam: General-Moderate distress at rest Eyes-normal ENT-normal Neck-supple Lungs-clear to auscultate bilaterally Heart-Regular,slow heart rate Abdomen-Benign,no masses Extremities-No edema Neuro-AAOx3 Lab data as noted below. ASSESSMENT & PLAN: Symptomatic bradycardia,S/P Dual Chamber PPM placed on 07/10/17 Secondary to 2nd Degree AVB -type 2 for the last the last 2 weeks Episodic 3AVB on tele noted at the ER as per ER MD Ongoing Chest pain with episodes of Bradycardia Transcutaneous pacing for now. (Analgesia, anxiolytics prn) Appreciate cardiology input S/P PPM on 07/10/17 Symptomatically much improved PPM interrogated and working fine Discharge home today Migraine, stable on maintenance meds Stable No attack Has h/o Asthma No acute issue Hyperlipidemia on statin Rx BP controlled Past tobacco abuse. 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 Full code. Discharge home today6 Vital Signs: Date Time Temp Pulse Resp B/P (MAP) Pulse Ox O2 Delivery O2 Flow Rate FiO2 07/11/17 09:00 36.5 35 17 167/71 (103) 99 Room Air 07/11/17 08:00 96 Room Air 07/11/17 07:19 36.6 64 20 98/67 (77) 96 Room Air 07/11/17 04:13 Room Air 07/11/17 04:00 36.5 65 18 108/76 (87) 95 Room Air 07/11/17 00:00 Room Air 07/10/17 22:55 36.7 69 20 115/82 (93) 97 Room Air 07/10/17 20:00 100 Room Air 07/10/17 19:37 36.6 67 20 111/71 (84) 95 Room Air 07/10/17 16:38 67 20 120/75 (90) 94 Room Air 07/10/17 16:00 100 Room Air 07/10/17 15:48 82 20 109/68 (82) 96 Room Air 07/10/17 15:33 63 16 98/67 (77) 93 Room Air 07/10/17 15:19 60 16 101/66 (78) 96 Room Air 07/10/17 15:03 74 16 109/80 (90) 99 Room Air 07/10/17 14:49 66 18 116/56 (76) 98 Room Air 07/10/17 14:37 36.5 68 16 103/69 (80) 100 Room Air 07/10/17 14:20 72 14 104/65 (78) 95 Room Air 07/10/17 14:10 72 14 134/95 (108) 95 Room Air 07/10/17 12:47 36.7 64 18 115/76 99 Room Air 07/10/17 12:00 Room Air 07/10/17 11:55 36.7 64 18 115/76 (89) 99 Room Air Lab Results: Results Past 24 Hours Test 07/10/17 10:41 07/11/17 06:10 Range/Units Sodium Level 143 141 136-145 mmol/L Potassium Level 3.9 3.8 3.5-5.1 mmol/L Chloride Level 112 108 98-107 mmol/L Carbon Dioxide Level 28 26 21-32 mmol/L Anion Gap 3.0 7.0 3-11 mmol/L Blood Urea Nitrogen 8 9 7-18 mg/dl Creatinine 0.66 0.70 0.60-1.20 mg/dl Est Creatinine Clear Calc Drug Dose 129.6 122.1 ml/min Estimated GFR () 120.2 117.9 Estimated GFR (Non- 103.7 101.7 BUN/Creatinine Ratio 12.3 12.1 10-20 Random Glucose 102 84 70-99 mg/dl Calcium Level 8.7 9.0 8.5-10.1 mg/dl Magnesium Level 2.0 2.1 1.8-2.4 mg/dl
--- NOTE | 2017-07-11 10:35 | Discharge Instructions ---
Discharge Instructions Date of Service Jul 11, 2017. Admission Reason for Admission: Symptomatic Bradycardia Discharge Discharge Diagnosis / Problem: Symptomatic Bradycardia s/p PPM placement on Discharge Goals Goal(s): Prevent Disease Progression Activity Recommendations Activity Limitations: resume your previous activity . Instructions / Follow-Up Instructions / Follow-Up Dr Lujan on 07/13/17 at 12:45 PM.cardiology will call for appointment.Take it easy as instructed by the Child Care Education Coordinator Current Hospital Diet Patient's current hospital diet: AHA Diet (Heart Healthy) Discharge Diet Recommended Diet: AHA Diet (Heart Healthy) Pending Studies Studies pending at discharge: no Medical Emergencies . Who to Call and When: Medical Emergencies: If at any time you feel your situation is an emergency, please call 911 immediately. . Non-Emergent Contact Non-Emergency issues call your: Primary Care Provider . Past History Medical & Surgical History: (1) S/P placement of cardiac pacemaker (2) Symptomatic bradycardia (3) Chest pain (4) Lumbar strain . "Provider Documentation" section prepared by Goyo Thornton. . VTE Core Measure Inpt VTE Proph given/why not?: SCD's
[2017-07-11 10:42] VITALS: BP 167/71; PULSE 35; TEMP 36.5; O2SAT 99
[2017-07-12] MEDS ORDERED: FENTANYL PATCH REMOVE & WASTE SCH (20:59)
[2017-07-12] MEDS ORDERED: FENTANYL 25 MCG/HR TDSY TD SCH (21:00)
--- NOTE | 2017-07-20 07:26 | Discharge Summary ---
Discharge Summary Date of Service Jul 20, 2017. Discharge Summary Admission Date: Jul 09, 2017 at 21:03 Discharge Date: Jul 11, 2017 Discharge Disposition: Home Principal Diagnosis: Symptomatic Bradycardia s/p PPM placement on 07/10/17 Secondary Diagnoses/Problems: Please see H&P and Hospital Progress note Consultations: Cardiology Medication Reconciliation Continued Medications: Atorvastatin (Lipitor) 40 Mg Tab 40 MG PO QAM, TAB Bupropion (Wellbutrin Sr) 150 Mg Ertab 150 MG PO BID, TAB Cetirizine (Zyrtec) 10 Mg Tab 10 MG PO DAILY, TAB Fish Oil ([place]-3) 1 Ea Cap 4 CAP PO DAILY Hydrocodone/Acetaminophen 5MG/325MG ([place] 5MG/325MG) Tab 1 TABLET PO Q6 PRN for Pain, TAB PRN PAIN Ibuprofen (Advil) 200 Mg Tab 800 MG PO UD PRN for Pain or Fever, TAB Ondasetron Odt (Zofran Odt) 4 Mg Tab 4 MG SL Q6H PRN for Nausea or Vomiting, #6 TAB Psyllium (Fiber) Unknown Strength Cap 5 CAP PO DAILY Topiramate (Topamax) 50 Mg Tab 50 MG PO BID, TAB Admission Information HPI (per Admitting provider): DATE OF ADMISSION: 07/09/2017 PRIMARY CARE DOCTOR: Dr. Lujan. CHIEF COMPLAINT: Chest pain. HISTORY OF PRESENT ILLNESS: History obtained from patient and records. Medical history is significant for recent 2AV block, asthma, past tobacco abuse , hyperlipidemia, migraine. PX sustained L knee injury at work last month. Outpatient procedure for torn meniscus left knee canceled 2 weeks ago when she was developed a second degree type 2 AV block after conscious sedation. Left-sided squeezing chest discomfort occasionally goes back, transient, lasting minutes, daily symptoms, with some shortness of breath and fatigue symptoms. Outpatient Lyme screen, TSH normal. Px referred to [facility] Cardiology. Outpatient nuclear cardiac stress test negative. EF 65% Zio patch read still pending. Seen by [facility] EPS about 2 days ago. Bradyarrhythmia, possibly related to medications and untreated sleep apnea as per note. Consideration for stopping Topamax after pharmacy consultation. Credit Administrator concerned about possible cardiomyopathy after EPM placement. Await Zio patch results, outpatient sleep study contemplated as per note. In the last 2 days worsening left-sided chest discomfort, coinciding with slow heart beat. Px brought to the emergency room. Cardiac rate going down to the 30s as per ER M.D. Chest pain symptoms coinciding with bradycardic episodes. Episodic complete heart block noted at some point as per ER M.D. MEDICAL HISTORY: As above. SURGICAL HISTORY: She had hysterectomy, orthopedic procedures. HOME MEDICATIONS: Include atorvastatin, Vicodin, Topamax, bupropion, rizatriptan, fluticasone, cetirizine, lorazepam, fish oil, lactase. ALLERGIES: ALCOHOL, BENGAY, DICLOFENAC, ETHANOL, LACTULOSE, TAPE, VOLTAREN. FAMILY HISTORY: Heart disease, hypertension, colon cancer, asthma. PERSONAL AND SOCIAL HISTORY: Recently stopped smoking. Occasional alcoholic beverage intake. [employer] employee. REVIEW OF SYSTEMS: As per HPI, all other ROS negative. PHYSICAL EXAMINATION: VITAL SIGNS: Blood pressure was noted to be 160/81, later 110/67; pulse rate of 64; RR 18; temperature 36.4; sats 99% on room air. GENERAL: Anxious, uncomfortable. Obese. SKIN: Normal color. HEENT: [place] palpebral conjunctivae. Dry mucosa. NECK: Short neck. LUNGS: Decreased breath sounds. HEART: Regular rate and rhythm. ABDOMEN: Some distention, nontender. EXTREMITIES: Minimal edema, no tenderness NEUROLOGIC: No gross focality. LABORATORY DATA: Hemoglobin 14, hematocrit 40.81, white cell count 9.1, platelets 242. Sodium 140, potassium 3.7, chloride 112, CO2 25, BUN 8, creatinine 0.7, glucose 68. TSH was noted to be 5.18. Chest x-ray showed no active disease. EKG as per my interpretation : rate 40, second degree AV block type 2, diffuse T-wave flattening. ASSESSMENT: 1. Symptomatic bradycardia 2AVB type 2 the last 2 weeks episodic 3AVB on tele noted at the ER as per ER MD Chest pain symptoms noted to coincide with bradycardic episodes during encounter. 2. migraine, stable on maintenance meds 3. Hyperlipidemia on statin Rx 4. past tobacco abuse. PLAN: PCU Transcutaneous pacing for now. (Analgesia, anxiolytics prn) Cardio consult RE symptomatic bradycardia, possible PPM placement. (ER provider already in touch with Dr. Snyder.) DVT prophylaxis, Lovenox subQ. Full code. Dictated: 07/09/17 2231 Transcribed: 07/09/17 2356 <Electronically signed by Rubén Marquez M.D.> Signed: 07/10/17 0657 ES Rubén Marquez M.D. Hospital Course Symptomatic bradycardia,S/P Dual Chamber PPM placed on 07/10/17 Secondary to 2nd Degree AVB -type 2 for the last the last 2 weeks Episodic 3AVB on tele noted at the ER as per ER MD Ongoing Chest pain with episodes of Bradycardia Transcutaneous pacing for now. (Analgesia, anxiolytics prn) Appreciate cardiology input S/P PPM on 07/10/17 Symptomatically much improved PPM interrogated and working fine Discharge home today Migraine, stable on maintenance meds Stable No attack Has h/o Asthma No acute issue Hyperlipidemia on statin Rx BP controlled Past tobacco abuse. 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 Full code. Discharge home today6 Total time spent on discharge = 35 minutes This includes examination of the patient, discharge planning, medication reconciliation, and communication with other providers. Discharge Instructions Date of Service Jul 11, 2017. Admission Reason for Admission: Symptomatic Bradycardia Discharge Discharge Diagnosis / Problem: Symptomatic Bradycardia s/p PPM placement on Discharge Goals Goal(s): Prevent Disease Progression Activity Recommendations Activity Limitations: resume your previous activity . Instructions / Follow-Up Instructions / Follow-Up Dr Lujan on 07/13/17 at 12:45 PM.cardiology will call for appointment.Take it easy as instructed by the Lawn Care Technician Current Hospital Diet Patient's current hospital diet: AHA Diet (Heart Healthy) Discharge Diet Recommended Diet: AHA Diet (Heart Healthy) Pending Studies Studies pending at discharge: no Medical Emergencies . Who to Call and When: Medical Emergencies: If at any time you feel your situation is an emergency, please call 911 immediately. . Non-Emergent Contact Non-Emergency issues call your: Primary Care Provider . Past History Medical & Surgical History: (1) S/P placement of cardiac pacemaker (2) Symptomatic bradycardia (3) Chest pain (4) Lumbar strain . "Provider Documentation" section prepared by Goyo Thornton. . VTE Core Measure Inpt VTE Proph given/why not?: SCD's <Electronically signed by Goyo Thornton M.D.> Signed: 07/11/17 103 Additional Copies To Megan Lujan M.D.
== END 2017-07-11 11:21 | disposition home or self-care (01) | DRG 244 ==
LOC: C.EDB 19:39 → C.2T 21:03 → ENRESERV 22:12
PROVIDERS: ADMIT Internal Medicine; ATTEND Internal Medicine
PROC: 02H63JZ Insertion of Pacemaker Lead into Right Atrium, Percutaneous Approach (ICD-10-PCS; principal; 2017-07-10 12:58)
PROC: 02HK3JZ Insertion of Pacemaker Lead into Right Ventricle, Percutaneous Approach (ICD-10-PCS; principal; 2017-07-10 12:58)
PROC: 0JH606Z Insertion of Pacemaker, Dual Chamber into Chest Subcutaneous Tissue and Fascia, Open Approach (ICD-10-PCS; principal; 2017-07-10 12:58)
DX: I44.2 Atrioventricular block, complete (principal); R00.1 Bradycardia, unspecified; G43.909 Migraine, unspecified, not intractable, without status migrainosus; G40.909 Epilepsy, unspecified, not intractable, without status epilepticus; R07.9 Chest pain, unspecified; J45.909 Unspecified asthma, uncomplicated; E78.5 Hyperlipidemia, unspecified; Z87.891 Personal history of nicotine dependence; Z79.899 Other long term (current) drug therapy; Z79.891 Long term (current) use of opiate analgesic; Z79.1 Long term (current) use of non-steroidal anti-inflammatories (NSAID); Z82.49 Family history of ischemic heart disease and other diseases of the circulatory system; Z82.5 Family history of asthma and other chronic lower respiratory diseases

== ENCOUNTER 2017-09-09 09:41 | Day surgery (SDC) | payer OTHER, BC ==
[2017-08-31 15:25] VITALS: BMI 37.0
--- NOTE | 2017-08-31 16:14 | PAT Medication Instructions ---
Service Date Aug 31, 2017. Current Home Medication List Acetaminophen (Tylenol), 1,000 MG PO PRN Albuterol Hfa (Ventolin Hfa), 2 PUFFS INH Q6H PRN for PRN Atorvastatin (Lipitor), 40 MG PO QAM Bupropion (Wellbutrin Sr), 150 MG PO BID Cetirizine (Zyrtec), 10 MG PO QAM Fish Oil (Anza-3), 4 CAP PO QAM Fluticasone Propionate (Nasal) (Flonase Allergy Relief), 2 SPRAYS INTNAS PRN Meloxicam (Mobic), 15 MG PO HS Ondasetron Odt (Zofran Odt), 4 MG SL Q6H PRN for Nausea or Vomiting Topiramate (Topamax), 50 MG PO BID [Psyllium], 5 TAB PO QAM Medication Instructions For Your Scheduled Surgery - Hold the following medications 2 weeks prior to surgery: Fish Oil (Anza-3), 4 CAP PO QAM - Hold the following medications per your surgeon's instructions: Meloxicam (Mobic), 15 MG PO HS - Hold the following medications the morning of surgery: [Psyllium], 5 TAB PO QAM Cetirizine (Zyrtec), 10 MG PO QAM - Take the following medications the morning of surgery with a sip of water: Topiramate (Topamax), 50 MG PO BID Ondasetron Odt (Zofran Odt), 4 MG SL Q6H PRN for Nausea or Vomiting (if needed) Bupropion (Wellbutrin Sr), 150 MG PO BID Fluticasone Propionate (Nasal) (Flonase Allergy Relief), 2 SPRAYS INTNAS PRN ( if needed) Atorvastatin (Lipitor), 40 MG PO QAM Acetaminophen (Tylenol), 1,000 MG PO PRN (if needed) Albuterol Hfa (Ventolin Hfa), 2 PUFFS INH Q6H PRN for PRN (if needed) - Take the following medications as scheduled the night before surgery: Topiramate (Topamax), 50 MG PO BID Ondasetron Odt (Zofran Odt), 4 MG SL Q6H PRN for Nausea or Vomiting (if needed) Bupropion (Wellbutrin Sr), 150 MG PO BID Fluticasone Propionate (Nasal) (Flonase Allergy Relief), 2 SPRAYS INTNAS PRN ( if needed) Acetaminophen (Tylenol), 1,000 MG PO PRN (if needed) Albuterol Hfa (Ventolin Hfa), 2 PUFFS INH Q6H PRN for PRN (if needed) If you have any questions please call us at [phone] or [phone] or [phone]
[2017-08-31 16:35] LABS: URINE APPEARANCE CLEAR (CLEAR); URINE BILIRUBIN NEG (NEG); URINE COLOR YELLOW; URINE NITRITE NEG (NEG); URINE SPECIFIC GRAVITY 1.018 (1.000-1.030); UROBILINOGEN NEG (NEG)
[2017-08-31 16:39] LABS: MANUAL MICROSCOPIC REQUIRED? NO; REVIEW REQ? NO
--- NOTE | 2017-09-08 13:10 | History and Physical ---
History & Physical Date Sep 08, 2017. Chief Complaint Patient presents is a 51-year-old white female with chief complaint of ongoing pain about her left knee she has tear of posterior horn medial meniscus of her left knee presents for a left knee arthroscopy History of Present Illness The patient is a 51 year old female with complaints of ongoing pain about her left knee with medial meniscal joint line pain tenderness and radiographic and MRI findings is that of a complex tear posterior horn medial meniscus patient presents for knee arthroscopy with partial medial meniscectomy Past Medical/Surgical History Medical Problems: (1) Kidney stones (2) Symptomatic bradycardia Surgical Problems: (1) S/P hysterectomy (2) S/P placement of cardiac pacemaker Additional History Hepatic Disease: No Endocrine Disorder: No Kidney Disease: No Hypertension: No Heart Disease: irregular heart beat Bleeding Tendencies: No Infectious Diseases: No Allergies Coded Allergies: Dextromethorphan (Verified Allergy, Intermediate, Hives, 08/31/17) Ethanol (Verified Allergy, Intermediate, Hives, 08/31/17) Latex (Verified Allergy, Intermediate, Hives, 08/31/17) Adhesives (Verified Allergy, Mild, red itchy skin ríos, 08/31/17) Diclofenac (Verified Allergy, Mild, [place] IN VISION, 08/31/17) Doxylamine (Verified Allergy, Mild, UNKNOWN, 08/31/17) Pseudoephedrine (Verified Allergy, Mild, UNKNOWN, 08/31/17) Home Medications Scheduled Acetaminophen (Tylenol), 1,000 MG PO PRN Atorvastatin (Lipitor), 40 MG PO QAM Bupropion (Wellbutrin Sr), 150 MG PO BID Cetirizine (Zyrtec), 10 MG PO QAM Fish Oil ([place]-3), 4 CAP PO QAM Fluticasone Propionate (Nasal) (Flonase Allergy Relief), 2 SPRAYS INTNAS PRN Meloxicam (Mobic), 15 MG PO HS Topiramate (Topamax), 50 MG PO BID [Psyllium], 5 TAB PO QAM Scheduled PRN Albuterol Hfa (Ventolin Hfa), 2 PUFFS INH Q6H PRN for PRN Ondasetron Odt (Zofran Odt), 4 MG SL Q6H PRN for Nausea or Vomiting Physical Examination Skin: warm/dry, no rash Eyes: normal inspection, EOMI, sclerae normal ENT: normal ENT inspection, pharynx normal Head: normocephalic, atraumatic Neck: supple, no adenopathy, trachea midline Respiratory/Chest: lungs clear, normal breath sounds, no respiratory distress Cardiovascular: regular rate, rhythm, no edema, no murmur Abdomen / GI: normal bowel sounds, non tender Back: normal inspection Extremities: normal inspection, normal range of motion, + pertinent finding ( tear posterior horn medial meniscus) Neurologic/Psych: no motor/sensory deficits, alert, normal reflexes, oriented x 3 Diagnosis Complex tear posterior posterior horn medial meniscus left knee Plan of Treatment Plans for arthroscopy arthroscopic partial meniscectomy Coloplast depending [facility] surgery postoperative pain management DVT prophylaxis antibiotics
[~2017-09-09] VITALS: Ht 170.2 cm; Wt 108.4 kg
--- NOTE | 2017-09-09 07:03 | History & Physical Bridge Note ---
H&P Re-Evaluation Bridge Note: I have examined the patient, reviewed the History & Physical and in the interval since the performance of the History & Physical I have noted the following changes of clinical significance: No changes noted
[~2017-09-09 09:41] MED LIST changes: +ACET-1256 PO; +ATOR-24 PO; +ATROPINE SULFATE 0.1 MG/ML 5ML SYR IV PRN; -BENZ100C84 PO; +BUPR-79 PO; +CEFAZOLIN 2000MG IV PUSH 10 ML IV SCH; +CEFAZOLIN IV 2,000 MG in SYRINGE 0 ML IV SCH; +EpHEDrine SULFATE INJ 50 MG/ML AMP IV PRN; +FLUT0.15 INTNAS; +HYDROmorphone INJ 2 MG/ML SYR/VIAL IV PRN; -IBUP-1050 PO; +LACTATED RINGER'S 1000ML 1,000 ML IV SCH; +MELO7.5T5 PO; +ONDANSETRON INJ 2 MG/ML 2 ML VIAL IV PRN; +PHENYLEPHRINE 100MCG/ML 5ML SYR IV PRN; -PSYL1CAP4 PO; +PSYLLIUM PO; +SCOPOLAMINE 1.5 MG TDSY TD SCH; +VNTHFA/IN INH
[2017-09-09 10:00] VITALS: BP 116/74; PULSE 67; TEMP 36.6; O2SAT 98; Ht 170.2 cm; Wt 108.4 kg
[2017-09-09] MEDS ORDERED: PROPOFOL IV EMULSION 10 MG/ML 20 ML VIAL IV ONE ×2 (10:39→13:18)
[2017-09-09] MEDS ORDERED: LIDOCAINE HCL 2% 2 ML VIAL (20MG/ML) ONE (10:39)
[2017-09-09] MEDS ORDERED: DEXAMETHASONE SOD INJ 4 MG/ML VIAL ONE (10:39)
[2017-09-09] MEDS ORDERED: ONDANSETRON INJ 2 MG/ML 2 ML VIAL ONE (10:39)
[2017-09-09] MEDS ORDERED: FENTANYL CITRATE INJ 50 MCG/1 ML 2 ML VIAL ONE (10:40)
[2017-09-09] MEDS ORDERED: MIDAZOLAM HCL 1 MG/ML 2ML VIAL ONE (10:40)
[2017-09-09] MEDS ORDERED: BUPIVACAINE/EPINEPHRINE 0.5% MPF 1:200,000 30 ML VIAL ONE (11:37)
[2017-09-09] MEDS ORDERED: SODIUM CHLORIDE 0.9% 1000ML 1,000 ML IV SCH (13:15)
[2017-09-09] MEDS ORDERED: ONDANSETRON INJ 2 MG/ML 2 ML VIAL IV PRN (13:15)
[2017-09-09] MEDS ORDERED: MoRPHine SULFATE 2 MG/ML CARP IV PRN (13:15)
[2017-09-09] MEDS ORDERED: OXYCODONE/ACETAMINOPHEN 5-325 TAB PO PRN ×2 (13:15)
--- NOTE | 2017-09-09 13:19 | Discharge Instructions ---
Discharge Instructions Date of Service Sep 09, 2017. Visit Reason for Visit: Left Knee Medial Meniscus Re-Tear Discharge Discharge Diagnosis / Problem: sp left knee arthroscopy Discharge Goals Goal(s): Decrease discomfort, Improve function, Increase independence Activity Recommendations Activity Limitations: per Instructions/Follow-up section Anesthesia . Post Anesthesia Instructions: If you have had General Anesthesia or IV Sedation: * Do not drive today. * Resume driving when surgeon permits. * Do not make important decisions or sign legal documents today. * Call surgeon for: 1. Temperature elevations greater than 101 degrees F. 2. Uncontrollable pain. 3. Excessive bleeding. 4. Persistent nausea and vomiting. 5. Medication intolerance (nausea, vomiting or rash). * For nausea and vomiting use only clear liquids such as: tea, soda, bouillon until nausea subsides, then gradually increase diet as tolerated. * If you have any concerns or questions, call your surgeon's office. If physician is unavailable and it is an emergency, call 911 or go to the nearest emergency room. . Instructions / Follow-Up Instructions / Follow-Up ACTIVITY RECOMMENDATIONS: * You may walk on the leg with or without crutches as comfort permits. * Bending of the knee should start at once. * Do not shower for 48 hours following surgery. SPECIAL CARE INSTRUCTIONS: * You may cleanse the skin adjacent to the small wounds with soap and water at the time of the first dressing change. * The application of an ice bag to the front and sides of the knee will decrease swelling and discomfort for the first 48 hours. * The small incisions may be sore and develop bruising. This bruising does not require any special care. SPECIAL PRECAUTIONS: * If you experience unusual pain unrelieved by prescriptions, temperature elevation (100 degrees F. or above) or progressive swelling or bleeding, you should contact our office at for further evaluation. * You may have been prescribed pain medication. If you experience nausea and/or fine skin rash, discontinue this medication and contact our office at for an alternate medication. DRESSING: * Dressing should be comfortable and absorb any leakage of fluid and/or blood. * The dressing may become moist or bloodstained. * Dressing may be removed __ after surgery and bandaids placed over the small surgical incisions. If can be removed sooner if it becomes very soiled or loose. * Bandaids may be used over next several days as needed and can be discontinued when there is not further drainage from the wounds. FOLLOW UP VISIT: If appointment is not already scheduled: Please call [facility] to make a follow-up appointment for your surgery at . Diet Recommendations Recommended Home Diet: resume previous diet Pending Studies Studies pending at discharge: no Medical Emergencies . Who to Call and When: Medical Emergencies: If at any time you feel your situation is an emergency, please call 911 immediately. . Non-Emergent Contact Non-Emergency issues call your: Surgeon . . "Provider Documentation" section prepared by Leidy Matthews. .
[2017-09-09] MEDS ORDERED: HYDR-5688 PO (13:20)
--- NOTE | 2017-09-09 13:35 | [facility] Operative Report ---
Operative Report Operative Date Sep 09, 2017. 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 Specimens none Complication(s) None Disposition Recovery Room / PACU Indications Patient presents after failing attempts at conservative management including injections anti-inflammatories relative rest viscus of dictation with complaints of ongoing pain premature medial joint line and meniscus presents for arthroscopy chondroplasty meniscectomy. Description of Procedure After proper prepping draping the left lower extremity 2 anterior portals were made anteromedial and anterolateral portal having been created the medial meniscus discussion prohibitions milder margin irregularity no full-thickness tear was noted there is grade 3 and 4 chondral lesion involving the medial femoral condyle 2 x 2 centimeters in dimension the anterior posterior cruciate ligament was visualized and probed and noted to be intact lateral meniscus visualized and probed and noted to be intact there is a global trochlear grade 4 chondral lesion which is also debrided and a chondroplasty was performed of the trochlea as well as the medial femoral condyle all pressure Khushboo abrasion moonscape closed for allowing sterile compressive dressing was placed patient was taken recovery in stable condition operative report dictated by Lm. I attest to the content of the Intraoperative Record and any orders documented therein. Any exceptions are noted below.
[2017-09-09] MEDS ORDERED: HYDROmorphone INJ 1 MG/ML SYR ONE (13:52)
--- NOTE | 2017-09-09 14:19 | Anesthesiology Progress Note ---
Anesthesia Post Op Note Date & Time Sep 09, 2017 at 14:19 Vital Signs Pain Intensity: 4 Vital Signs Past 12 Hours Date Time Temp Pulse Resp B/P (MAP) Pulse Ox O2 Delivery O2 Flow Rate FiO2 09/09/17 14:10 64 22 141/90 100 Room Air 09/09/17 14:00 71 22 148/94 98 Room Air 09/09/17 13:50 65 16 120/78 100 Mask 10 09/09/17 13:40 66 16 121/74 99 Mask 10 09/09/17 13:34 36.1 94 13 127/77 99 Mask 10 09/09/17 10:00 36.6 67 20 116/74 (88) 98 Room Air Notes Mental Status: alert / awake / arousable, participated in evaluation Pt Amnestic to Procedure: Yes Nausea / Vomiting: adequately controlled Pain: adequately controlled Airway Patency, RR, SpO2: stable & adequate BP & HR: stable & adequate Hydration State: stable & adequate Anesthetic Complications: no major complications apparent
[2017-09-09 14:25] VITALS: BP 142/63; PULSE 62; TEMP 36.6; O2SAT 97
[2017-09-09 14:55] VITALS: BP 121/66; PULSE 74; O2SAT 98
[2017-09-09 15:25] VITALS: BP 121/66; PULSE 74; TEMP 36.6; O2SAT 97
[2017-09-09] MEDS ORDERED: CHECK SCOPOLAMINE PATCH PLACEMENT SCH (16:00)
== END 2017-09-09 15:40 | disposition home or self-care (01) ==
LOC: C.ACU 09:41
PROVIDERS: ATTEND Orthopaedic Surgery
DX: M22.42 Chondromalacia patellae, left knee (principal); R00.1 Bradycardia, unspecified; Z95.0 Presence of cardiac pacemaker; Z79.899 Other long term (current) drug therapy

== ENCOUNTER 2017-10-08 07:59 | Emergency (ER) | payer BC, OTHER ==
[~2017-10-08] VITALS: Ht 170.2 cm; Wt 105.0 kg
[~2017-10-08 07:59] MED LIST changes: -ACET-1256 PO; -ATROPINE SULFATE 0.1 MG/ML 5ML SYR IV PRN; -CEFAZOLIN 2000MG IV PUSH 10 ML IV SCH; -CEFAZOLIN IV 2,000 MG in SYRINGE 0 ML IV SCH; -EpHEDrine SULFATE INJ 50 MG/ML AMP IV PRN; +HYDR-5688 PO; -HYDROmorphone INJ 2 MG/ML SYR/VIAL IV PRN; -LACTATED RINGER'S 1000ML 1,000 ML IV SCH; -ONDANSETRON INJ 2 MG/ML 2 ML VIAL IV PRN; -PHENYLEPHRINE 100MCG/ML 5ML SYR IV PRN; -SCOPOLAMINE 1.5 MG TDSY TD SCH
[2017-10-08 08:06] VITALS: TEMP 36.9; Ht 170.2 cm; Wt 105.0 kg
[2017-10-08] MEDS ORDERED: ACETAMINOPHEN 500 MG TAB PO STA (08:09)
[2017-10-08] MEDS ORDERED: IBUPROFEN 600 MG TAB PO STA (08:09)
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
[2017-10-08] MEDS ORDERED: TRAM-10 PO (09:15)
[2017-10-08] MEDS ORDERED: PSYL0.529 (09:15)
[2017-10-08 10:04] VITALS: BP 119/69; PULSE 70; O2SAT 98
== END 2017-10-08 10:06 | disposition home or self-care (01) ==
LOC: EDBD 07:59 → C.EDA 08:00
DX: S20.212A Contusion of left front wall of thorax, initial encounter (principal); V48.0XXA Car driver injured in noncollision transport accident in nontraffic accident, initial encounter; Z95.0 Presence of cardiac pacemaker; Z87.442 Personal history of urinary calculi; Z90.710 Acquired absence of both cervix and uterus; Z80.9 Family history of malignant neoplasm, unspecified; Z83.3 Family history of diabetes mellitus; Z82.49 Family history of ischemic heart disease and other diseases of the circulatory system; Z84.1 Family history of disorders of kidney and ureter; Z87.891 Personal history of nicotine dependence; Z79.899 Other long term (current) drug therapy

== ENCOUNTER 2017-10-29 16:53 | Emergency (ER) | payer OTHER ==
[~2017-10-29] VITALS: Ht 170.2 cm; Wt 108.5 kg
[~2017-10-29 16:53] MED LIST changes: -ATOR-24 PO; -CETI10TA84 PO; -FLUT0.15 INTNAS; -OMEG10007 PO; -ONDA4TAB10 SL; +PSYL0.529; -PSYLLIUM PO; -TOPI50TA24 PO; +TRAM-10 PO; -VNTHFA/IN INH
[2017-10-29 17:07] VITALS: TEMP 37; Ht 170.2 cm; Wt 108.5 kg
[2017-10-29] MEDS ORDERED: MoRPHine SULFATE 10 MG/ML CARP/VIAL IV STA (19:00)
[2017-10-29] MEDS ORDERED: ONDANSETRON INJ 2 MG/ML 2 ML VIAL IV STA (19:00)
[2017-10-29 19:43] VITALS: O2SAT 96
[2017-10-29] MEDS ORDERED: MoRPHine SULFATE 2 MG/ML CARP ONE (19:45)
[2017-10-29] MEDS ORDERED: MoRPHine SULFATE 4 MG/ML 1 ML CARP\\VIAL ONE (19:45)
[2017-10-29 20:00] LABS: BASO % 0.8 %; BASO ABS # 0.07 K/uL (0-0.2); EOS ABS # 0.18 K/uL (0-0.5); HEMATOCRIT 39.6 % (37-47); HEMOGLOBIN 13.2 g/dL (12.0-16.0); IG# 0.02 K/uL (0.00-0.02); LYMPH ABS # 3.77 K/uL (1.2-3.4); MEAN CELL VOLUME 93.2 fL (80-100); MEAN CORPUSCULAR HEMOGLOBIN 31.1 pg (25-34); MEAN CORPUSCULAR HGB CONC 33.3 g/dl (32-36); MEAN PLATELET VOLUME 10.4 fL (7.4-10.4); MONO % 8.4 %; MONO ABS # 0.75 K/uL (0.11-0.59); NEUT % 46.6 %; NEUT ABS # 4.18 K/uL (1.4-6.5); PLATELET COUNT 234 K/uL (130-400); RED CELL DISTRIBUTION WIDTH CV 13.4 % (11.5-14.5); RED CELL DISTRIBUTION WIDTH SD 45.4 fL (36.4-46.3); WHITE BLOOD COUNT 8.97 K/uL (4.8-10.8)
[2017-10-29 20:11] LABS: PTT PATIENT 26.4 SECONDS (21.0-31.0)
--- NOTE | 2017-10-29 20:12 | DIAGNOSTIC IMAGING REPORT ---
CHEST 2 VIEWS ROUTINE CLINICAL HISTORY: cough COMPARISON STUDY: 10/08/2017 FINDINGS: The cardiac and mediastinal contours remain stable. There is a left subclavian dual-chamber central venous pacemaker present. There is no failure. There is no focal pulmonary consolidation. There are no pleural effusions.[ IMPRESSION: No active disease in the chest. Electronically signed by: Augustin Beach M.D. 10/29/2017 8:11 PM Dictated Date/Time: 10/29/2017 8:11 PM
[2017-10-29 20:22] LABS: CALCIUM 8.9 mg/dl (8.5-10.1); CREATININE 0.75 mg/dl (0.60-1.20)
[2017-10-29] MEDS ORDERED: OPTIRAY 320 IV PRN (21:15)
--- NOTE | 2017-10-29 22:20 | DIAGNOSTIC IMAGING REPORT ---
CT ANGIOGRAM OF THE CHEST CLINICAL HISTORY: Chest pain, elevated d-dimer. Cough. COMPARISON STUDY: Chest x-ray dated 10/29/2017 TECHNIQUE: Following the IV administration of 85 mL of [id number]-320, CT angiogram of the thorax was performed from the thoracic inlet to the lung bases utilizing the pulmonary embolus protocol. Images are reviewed in the axial, sagittal, and coronal planes. IV contrast was administered without complication. MIP imaging was performed. A dose lowering technique was utilized adhering to the principles of ALARA. CT DOSE: 611.37 mGy.cm FINDINGS: There is a left subclavian dual-chamber central venous pacemaker present. No pathologically enlarged axillary mediastinal or hilar lymph nodes were visualized. There was no evidence of thoracic aortic dilatation. There were no pulmonary artery filling defects to indicate acute pulmonary embolism. No pleural effusions are visualized. There was no evidence of focal pulmonary consolidation. IMPRESSION: 1. No acute intrathoracic findings 2. No evidence of pulmonary embolism 3. No evidence of focal pulmonary consolidation Electronically signed by: Augustin Beach M.D. 10/29/2017 10:18 PM Dictated Date/Time: 10/29/2017 10:15 PM
[2017-10-29 22:39] LABS: CKMB < 0.5 ng/ml (0.5-3.6)
[2017-10-29] MEDS ORDERED: OXYCODONE HCL IR 5 MG TAB (IMMEDIATE RELEASE) PO STA (23:05)
[2017-10-29] MEDS ORDERED: OXYC-737 PO (23:08)
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
[2017-10-29] MEDS ORDERED: OXYCODONE IR HOME PACK PO ONE (23:15)
[2017-10-29 23:26] VITALS: BP 121/70; PULSE 70; O2SAT 97
[2018-03-13] MEDS ORDERED: MELO15TA10 PO (13:14)
[2018-03-13] MEDS ORDERED: FLX5 PO (13:14)
[2018-03-13] MEDS ORDERED: NRN100 PO (13:14)
[2018-03-13] MEDS ORDERED: ACET-1311 PO (13:16)
[2018-03-21] MEDS ORDERED: TOPI50TA24 PO (00:39)
[2018-03-21] MEDS ORDERED: OMEG10007 PO (00:44)
[2018-03-21] MEDS ORDERED: CETI10TA84 PO (09:43)
[2018-03-21] MEDS ORDERED: BUSP-8 PO (15:19)
[2018-03-21] MEDS ORDERED: RIZA5TAB10 PO (15:20)
[2018-03-21] MEDS ORDERED: SERT-234 PO (15:20)
[2018-03-21] MEDS ORDERED: FLUT0.15 INTNAS (15:23)
[2018-03-21] MEDS ORDERED: VNTHFA/IN INH (15:23)
[2018-03-21] MEDS ORDERED: ATOR-24 PO (20:03)
[2018-03-21] MEDS ORDERED: CYCL5TAB PO (21:04)
[2018-03-21] MEDS ORDERED: MELO15TA10 PO (21:04)
[2018-03-21] MEDS ORDERED: GABA-112 PO (21:04)
[2018-03-21] MEDS ORDERED: ACET-1256 PO (21:07)
[2018-04-25] MEDS ORDERED: AMPH10CA3 PO (01:43)
[2018-04-25] MEDS ORDERED: OXYC-737 PO (03:15)
== END 2017-10-29 23:26 | disposition home or self-care (01) ==
LOC: C.EDB 16:54
DX: R07.89 Other chest pain (principal); R05 Cough; Z87.440 Personal history of urinary (tract) infections; Z90.710 Acquired absence of both cervix and uterus; Z95.0 Presence of cardiac pacemaker; Z79.899 Other long term (current) drug therapy; Z80.9 Family history of malignant neoplasm, unspecified; Z83.3 Family history of diabetes mellitus; Z83.79 Family history of other diseases of the digestive system; Z82.49 Family history of ischemic heart disease and other diseases of the circulatory system; Z84.1 Family history of disorders of kidney and ureter

== ENCOUNTER 2018-03-12 14:28 | Observation (INO) | payer BC, OTHER ==
[~2018-03-12] VITALS: Ht 170.2 cm; Wt 111.0 kg
[~2018-03-12 14:28] MED LIST changes: +CETI10TA84 PO; -HYDR-5688 PO; +OMEG10007 PO; +OXYC1TAB3 PO; +TOPI50TA24 PO
--- NOTE | 2018-03-12 14:31 | EMERGENCY ROOM VISIT NOTE ---
History Report prepared by Jacquelyn: Brent Mars Under the Supervision of: Dr. Enoch Pressley M.D. First contact with patient: 14:28 Chief Complaint: CHEST PAIN Stated Complaint: CHEST PAIN History of Present Illness The patient is a 52 year old who presents to the Emergency Room with complaints of worsening chest pain that began a year ago. She rates her pain as a 5/10 in severity. She describes the pain as a sharp sensation. The patient states that she had a pacemaker placed a year ago due to an AV block. The patient states the pain worsened in the last two days and she has been experiencing an intermittent stabbing sensation in her chest. She notes she has also been experiencing palpitations and shortness of breath today. The patient states that "my breath was taken away". She reports that this typically happens when her heart rate increases. The patient states her nurse was concerned since her pacemaker should not allow her heart rate to increase. The patient does admits that she recently traveled for 6 hours when she left the beach two days ago. She denies a cough, hormone pills, recent surgeries, traumas, worsened shortness of breath with lying flat, radiation of pain, rashes, nausea, vomiting , and a possibility. Source of History: patient Onset: a year ago Position: chest Quality: sharp Timing: worsening Associated Symptoms: + SOB, No cough, No nausea, No vomiting, No rash Note: Associated symptoms: palpitations. Review of Systems See HPI for pertinent positives and negatives. A total of ten systems were reviewed and were otherwise negative. Past Medical & Surgical Medical Problems: (1) Chest pain (2) Kidney stones (3) Symptomatic bradycardia Surgical Problems: (1) S/P hysterectomy (2) S/P placement of cardiac pacemaker Family History Cancer Diabetes mellitus Gallbladder disease Heart disease Hypertension Kidney disease Kidney stones Lung disease Social History Smoking Status: Never Smoker Drug Use: none Marital Status: Housing Status: lives with family Occupation Status: employed Current/Historical Medications Scheduled Atorvastatin (Lipitor), 40 MG PO QAM Buspirone Hcl (Buspirone Hcl), 10 MG PO TID Cetirizine (Zyrtec), 10 MG PO QAM Fish Oil ([place]-3), 4 CAP PO QAM Fluticasone Propionate (Nasal) (Flonase Allergy Relief), 2 SPRAYS INTNAS PRN Meloxicam (Mobic), 15 MG PO DAILY Rizatriptan Benzoate (Maxalt), 5 MG PO PRN UD Sertraline (Zoloft), 100 MG PO DAILY Topiramate (Topamax), 50 MG PO BID Scheduled PRN Albuterol Hfa (Ventolin Hfa), 2 PUFFS INH Q6H PRN for PRN Allergies Coded Allergies: Dextromethorphan (Verified Allergy, Intermediate, Hives, 10/29/17) Ethanol (Verified Allergy, Intermediate, Hives, 10/29/17) Latex (Verified Allergy, Intermediate, Hives, 10/29/17) Adhesives (Verified Allergy, Mild, red itchy skin ríos, 10/29/17) Diclofenac (Verified Allergy, Mild, WHITE CLOUDS IN VISION, 10/29/17) Doxylamine (Verified Allergy, Mild, UNKNOWN, 10/29/17) Pseudoephedrine (Verified Allergy, Mild, UNKNOWN, 10/29/17) Physical Exam Vital Signs Date Time Temp Pulse Resp B/P (MAP) Pulse Ox O2 Delivery O2 Flow Rate FiO2 03/12/18 17:36 60 22 98 03/12/18 17:31 60 16 113/77 97 Room Air 03/12/18 17:20 130/79 03/12/18 17:01 61 17 125/81 97 Room Air 03/12/18 16:56 60 19 99 Room Air 03/12/18 16:46 113/78 03/12/18 16:31 99/66 03/12/18 16:26 60 15 96 Room Air 03/12/18 16:16 109/70 03/12/18 16:01 103/76 03/12/18 15:56 61 20 97 Room Air 03/12/18 15:51 63 21 95 Room Air 03/12/18 15:46 110/75 03/12/18 15:41 110/73 03/12/18 15:36 61 18 119/71 03/12/18 15:36 67 22 119/71 94 Room Air 03/12/18 15:32 110/57 03/12/18 15:30 70 20 110/57 95 Room Air 03/12/18 15:21 66 21 98 Room Air 03/12/18 15:06 61 20 96 Room Air 03/12/18 15:01 137/82 03/12/18 14:58 66 20 96 Room Air 03/12/18 14:49 98 Room Air 03/12/18 14:40 128/83 03/12/18 14:40 66 03/12/18 14:28 98 Room Air 03/12/18 14:28 36.6 68 18 128/83 98 Room Air 03/12/18 14:28 98 Room Air 03/12/18 14:28 36.6 68 18 128/83 98 Room Air Physical Exam Physical Exam GENERAL: She is oriented to person, place, and time. She appears well- developed and well-nourished. She does not appear distressed. ____ HENT: Exam performed. Head: Normocephalic and atraumatic. Right Ear: External ear normal. No mastoid tenderness. Left Ear: External ear normal. No mastoid tenderness. Mouth/Throat: The oropharynx is clear and moist. No trismus in the jaw. No dental abscesses or uvula swelling. No oropharyngeal exudate or tonsillar abscesses. ____ EYES: Conjunctivae and EOM are normal. Pupils are equal, round, and reactive to light. Right eye exhibits no discharge. Left eye exhibits no discharge. No scleral icterus. ____ NECK: Normal range of motion. Neck supple. No JVD present. No spinous process tenderness present. No carotid bruit present. No rigidity. No tracheal deviation and normal range of motion present. No Brudzinski's sign and no Kernig 's sign noted. ____ CV: Normal rate, regular rhythm, normal heart sounds and intact distal pulses. There is no peripheral edema. Palpable radial pulses bue. ____ PULM/CHEST: Effort normal and breath sounds normal. No respiratory distress. No stridor. She has no wheezes. She has no rales. Chest Wall: She exhibits no tenderness. ____ ABD: The abdomen is soft. Bowel sounds are normal. She has no distension. No mass is present. There is no tenderness. There is no rebound, no guarding, no Bajwa's sign and no tenderness at McBurney's point. Rovsig negative MUSC/SKEL: Normal range of motion. There is no peripheral edema, tenderness or deformity. LYMPH: No cervical adenopathy. ____ NEURO: She is alert and oriented to person, place, and time. She has normal strength. No cranial nerve deficit or sensory deficit. Coordination and gait normal. GCS eye subscore is 4. GCS verbal subscore is 5. GCS motor subscore is 6. Cerebellar tests wnl. ____ SKIN: Skin is warm and dry. She is not diaphoretic. ____ PSYCH: She has a normal mood and affect. Her behavior is normal. Judgment and thought content normal. ____ Medical Decision & Procedures ER Provider Diagnostic Interpretation: X-ray: Per my interpretation, radiologist review. TWO VIEW CHEST CLINICAL HISTORY: Atypical chest pain.. FINDINGS: PA and lateral chest radiographs are compared to chest x-ray and chest CT dated 10/29/2017. A 2-lead cardiac pacemaker is unchanged in position and partially obscures the left upper chest. The heart is enlarged. The pulmonary vasculature is noncongested. Chronic interstitial thickening similar to previous. No airspace consolidation or pleural effusion is identified. There is no pneumothorax. The skeletal structures are osteopenic. The bony thorax appears intact. IMPRESSION: 1. Cardiomegaly and cardiac pacemaker. There is no radiographic evidence of congestive failure. 2. There is no airspace consolidation or pleural effusion. Electronically signed by: Kishan Quintanilla M.D. 03/12/2018 4:31 PM Dictated Date/Time: 03/12/2018 4:30 PM Laboratory Results 03/12/18 15:20 Red Blood Count 4.04, Mean Corpuscular Volume 93.8, Mean Corpuscular Hemoglobin 32.2, Mean Corpuscular Hemoglobin Concent 34.3, Neutrophils (%) (Auto) 47.5, Lymphocytes (%) (Auto) 42.3, Monocytes (%) (Auto) 7.8, Eosinophils (%) (Auto) 2.1, Basophils (%) (Auto) 0.3, Neutrophils # (Auto) 3.60, Lymphocytes # (Auto) 3.21, Monocytes # (Auto) 0.59, Eosinophils # (Auto) 0.16, Basophils # (Auto) 0.02 03/12/18 15:20 Test 03/12/18 15:20 White Blood Count 7.58 K/uL (4.8-10.8) Red Blood Count 4.04 M/uL (4.2-5.4) Hemoglobin 13.0 g/dL (12.0-16.0) Hematocrit 37.9 % (37-47) Mean Corpuscular Volume 93.8 fL (80-100) Mean Corpuscular Hemoglobin 32.2 pg (25-34) Mean Corpuscular Hemoglobin Concent 34.3 g/dl (32-36) Platelet Count 310 K/uL (130-400) Neutrophils (%) (Auto) 47.5 % Lymphocytes (%) (Auto) 42.3 % Monocytes (%) (Auto) 7.8 % Eosinophils (%) (Auto) 2.1 % Basophils (%) (Auto) 0.3 % Neutrophils # (Auto) 3.60 K/uL (1.4-6.5) Lymphocytes # (Auto) 3.21 K/uL (1.2-3.4) Monocytes # (Auto) 0.59 K/uL (0.11-0.59) Eosinophils # (Auto) 0.16 K/uL (0-0.5) Basophils # (Auto) 0.02 K/uL (0-0.2) Immature Granulocyte % (Auto) 0.0 % Immature Granulocyte # (Auto) 0.00 K/uL (0.00-0.02) Platelet Estimate NORMAL Red Blood Cell Morphology Unremarkable Prothrombin Time 10.0 SECONDS (9.0-12.0) Prothromb Time International Ratio 1.0 (0.9-1.1) Activated Partial Thromboplast Time 24.7 SECONDS (21.0-31.0) Partial Thromboplastin Ratio 1.0 D-Dimer 430 ug/L FEU (0-500) Anion Gap 6.0 mmol/L (3-11) Est Creatinine Clear Calc Drug Dose 118.3 ml/min Estimated GFR () 109.5 Estimated GFR (Non- 94.5 BUN/Creatinine Ratio 17.3 (10-20) Calcium Level 8.7 mg/dl (8.5-10.1) Troponin I < 0.015 ng/ml (0-0.045) Pro-B-Type Natriuretic Peptide 28 pg/ml (0-900) Laboratory results reviewed by me Medications Administered Medications (Trade) Dose Ordered Sig/Franklin Route Start Time Stop Time Status Last Admin Dose Admin Aspirin (Aspirin Chew) 324 mg NOW STAT PO 03/12/18 14:46 03/12/18 14:47 DC 03/12/18 14:54 324 MG Sodium Chloride 1,000 ml @ 999 mls/hr Q1H1M STAT IV 03/12/18 15:24 03/12/18 16:24 DC 03/12/18 15:28 999 MLS/HR Nitroglycerin (Nitrostat Tab) 0.4 mg Q5M STAT SL 03/12/18 15:24 03/12/18 15:26 DC 03/12/18 15:28 0.4 MG Ondansetron HCl (Zofran Inj) 4 mg STK-MED ONCE .ROUTE 03/12/18 15:45 03/12/18 15:46 DC 03/12/18 15:47 4 MG Morphine Sulfate (MoRPHine SULFATE INJ) 4 mg STK-MED ONCE .ROUTE 03/12/18 15:45 03/12/18 15:46 DC 03/12/18 15:50 2 MG Morphine Sulfate (MoRPHine SULFATE INJ) 2 mg NOW STAT IV 03/12/18 17:24 03/12/18 17:25 DC 03/12/18 17:44 2 MG Ondansetron HCl (Zofran Inj) 4 mg NOW STAT IV 03/12/18 17:27 03/12/18 17:28 DC 03/12/18 17:42 4 MG ECG Per My Interpretation Indication: chest pain Rate (beats per minute): 66 Rhythm: normal sinus Findings: other (ME 2.6 QRS [address] elevation or depression) ED Course 1435: The patient was evaluated in room C07. A complete history and physical exam was performed. 1446: Ordered Aspirin 324 mg PO. 1524: Ordered Nitroglycerin 0.4 mg SL, Sodium Chloride 1000 ml @ 999 mls/hr IV. 1545: Ordered Morphine Sulfate 4 mg IV, Zofran Injection 4 mg IV. 1709: I discussed the patients case with Dr. Lang, [facility]. He suggests bringing the patient in for admission. 1712: I reevaluated the patient. The patient's EKG and D-Dimer are wnl. The patient's chest pain waxes and wanes and is better with Nitroglycerine. Her pain is also improved with morphine. I discussed the patient's case with Dr. Lang who would like the patient admitted to rule out ACS. 1718: I discussed the patients case with Ashlie Marrero PA-C Hospitalist. She understands the patients condition and agrees to accept the patient. The patient will be further evaluated. 1724: Ordered Morphine Sulfate 2 mg IV. 1727: Ordered Zofran Injection 4 mg IV. Medical Decision I reevaluated the patient. The patient's EKG and D-Dimer are wnl. The patient's chest pain waxes and wanes and is better with Nitroglycerine. Her pain is also improved with morphine. I discussed the patient's case with Dr. Lang who would like the patient admitted to rule out ACS.I discussed the patients case with [facility] Retana Card[facility]. He suggests bringing the patient in for admission. I discussed the patients case with Ashlie Marrero PA-C Hospitalist. She understands the patients condition and agrees to accept the patient. The patient will be further evaluated. Medication Reconcilliation Current Medication List: was personally reviewed by me Blood Pressure Screening Patient's blood pressure: Normal blood pressure Consults Time Called: 170 Consulting Physician: [facility] Returned Call: [phone] I discussed the patients case with Ashlie Retana Cardiology. He suggests bringing the patient in for admission. Additional Consults: Time Called: 171 Consulted Physician: Ashlie Marrero Returned Call: [phone] Additional Comments: I discussed the patients case with Ashlie Marrero PA-C Hospitalist. She understands the patients condition and agrees to accept the patient. The patient will be further evaluated. Impression Primary Impression: Chest pain, unspecified Scribe Attestation The scribe's documentation has been prepared under my direction and personally reviewed by me in its entirety. I confirm that the note above accurately reflects all work, treatment, procedures, and medical decision making performed by me. The chart was completed utilizing [employer] voice recognition software. Grammatical errors, random word insertions, pronoun errors, and incomplete sentences are an occasional consequence of this system due to software limitations, ambient noise, and hardware issues. Any formal questions or concerns about the content, text, or information contained within the body of this dictation should be directly addressed to the physician for clarification. Departure Information Dispostion Being Evaluated By Hospitalist Referrals Megan Lujan M.D. (PCP) Patient Instructions My [facility] Problem Qualifiers Primary Impression: Chest pain, unspecified Chest pain type: unspecified Qualified Codes: R07.9 - Chest pain, unspecified
[2018-03-12] MEDS ORDERED: ASPIRIN 81 MG CHEW PO STA (14:46)
[2018-03-12] MEDS ORDERED: MELO15TA10 PO (15:18)
[2018-03-12] MEDS ORDERED: BUSP-8 PO (15:19)
[2018-03-12] MEDS ORDERED: RIZA5TAB10 PO (15:20)
[2018-03-12] MEDS ORDERED: SERT-234 PO (15:20)
[2018-03-12] MEDS ORDERED: VNTHFA/IN INH (15:23)
[2018-03-12] MEDS ORDERED: FLUT0.15 INTNAS (15:23)
[2018-03-12] MEDS ORDERED: NITROGLYCERIN 0.4 MG SL PER TAB CHARGE SL STA (15:24)
[2018-03-12] MEDS ORDERED: SODIUM CHLORIDE 0.9% 1000ML 1,000 ML IV STA (15:24)
[2018-03-12] MEDS ORDERED: NITROGLYCERIN 0.4 MG SL PER TAB CHARGE ONE (15:25)
[2018-03-12] MEDS ORDERED: ONDANSETRON INJ 2 MG/ML 2 ML VIAL ONE (15:45)
[2018-03-12] MEDS ORDERED: MoRPHine SULFATE 4 MG/ML 1 ML CARP\\VIAL ONE (15:45)
[2018-03-12 15:49] LABS: PTT PATIENT 24.7 SECONDS (21.0-31.0)
[2018-03-12] MEDS ORDERED: NURSING VERBAL MED ORDER ONE (15:50)
[2018-03-12 16:00] LABS: BLOOD UREA NITROGEN 13 mg/dl (7-18); CALCIUM 8.7 mg/dl (8.5-10.1); CARBON DIOXIDE 23 mmol/L (21-32); CREATININE 0.74 mg/dl (0.60-1.20); GLUCOSE 93 mg/dl (70-99); POTASSIUM 3.6 mmol/L (3.5-5.1); SODIUM 144 mmol/L (136-145)
--- NOTE | 2018-03-12 16:32 | DIAGNOSTIC IMAGING REPORT ---
TWO VIEW CHEST CLINICAL HISTORY: Atypical chest pain.. FINDINGS: PA and lateral chest radiographs are compared to chest x-ray and chest CT dated 10/29/2017. A 2-lead cardiac pacemaker is unchanged in position and partially obscures the left upper chest. The heart is enlarged. The pulmonary vasculature is noncongested. Chronic interstitial thickening similar to previous. No airspace consolidation or pleural effusion is identified. There is no pneumothorax. The skeletal structures are osteopenic. The bony thorax appears intact. IMPRESSION: 1. Cardiomegaly and cardiac pacemaker. There is no radiographic evidence of congestive failure. 2. There is no airspace consolidation or pleural effusion. Electronically signed by: Kishan Quintanilla M.D. 03/12/2018 4:31 PM Dictated Date/Time: 03/12/2018 4:30 PM
[2018-03-12 16:55] LABS: HEMATOCRIT 37.9 % (37-47); MEAN CELL VOLUME 93.8 fL (80-100); MEAN CORPUSCULAR HEMOGLOBIN 32.2 pg (25-34); MEAN CORPUSCULAR HGB CONC 34.3 g/dl (32-36); PLATELET COUNT 310 K/uL (130-400); WHITE BLOOD COUNT 7.58 K/uL (4.8-10.8)
[2018-03-12 16:56] LABS: BASO % 0.3 %; BASO ABS # 0.02 K/uL (0-0.2); EOS % 2.1 %; EOS ABS # 0.16 K/uL (0-0.5); LYMPH % 42.3 %; LYMPH ABS # 3.21 K/uL (1.2-3.4); MONO % 7.8 %; MONO ABS # 0.59 K/uL (0.11-0.59); NEUT % 47.5 %
[2018-03-12] MEDS ORDERED: MoRPHine SULFATE 4 MG/ML 1 ML CARP\\VIAL IV STA ×2 (17:24→20:17)
[2018-03-12] MEDS ORDERED: ONDANSETRON INJ 2 MG/ML 2 ML VIAL IV STA (17:27)
[2018-03-12 20:00] VITALS: BP 129/90; PULSE 65; TEMP 36.5; O2SAT 100; Ht 170.2 cm; Wt 111.0 kg
[2018-03-12] MEDS ORDERED: ATOR-24 PO (20:03)
[2018-03-12] MEDS ORDERED: ALBUTEROL HFA 8 GM INHALER INH PRN (20:30)
[2018-03-12] MEDS ORDERED: MoRPHine SULFATE 4 MG/ML 1 ML CARP\\VIAL IV PRN (20:30)
[2018-03-12] MEDS ORDERED: RIZATRIPTAN BENZOATE 10 MG TAB PO PRN (20:30)
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
[2018-03-12] MEDS ORDERED: ENOXAPARIN 40 MG/0.4 ML SYR SC SCH (21:00)
--- NOTE | 2018-03-12 21:03 | DIAGNOSTIC IMAGING REPORT ---
LEFT CHEST WALL ULTRASOUND CLINICAL HISTORY: Possible fluid collection associated with left pacemaker generator. COMPARISON STUDY: Chest x-ray dated 03/12/2018 FINDINGS: Ultrasonic graphic evaluation of the left chest wall the level of the patient's left pacemaker generator was performed. There are no abnormal fluid collections. IMPRESSION: No ultrasonographic abnormalities. Electronically signed by: Augustin Beach M.D. 03/12/2018 9:02 PM Dictated Date/Time: 03/12/2018 9:00 PM
[2018-03-12] MEDS: TOPIRAMATE 50 MG TAB PO SCH (21:08)
[2018-03-12] MEDS: GABAPENTIN 100 MG CAP PO SCH (21:11)
[2018-03-12] MEDS: CYCLOBENZAPRINE HCL 5 MG TAB PO SCH (21:12)
[2018-03-12 22:30] LABS: CKMB 0.8 ng/ml (0.5-3.6)
[2018-03-12 23:52] VITALS: BP 106/62; PULSE 60; TEMP 36.7; O2SAT 97
[2018-03-13] MEDS ORDERED: PROCHLORPERAZINE INJ 5 MG in SYRINGE 4 ML IV PRN (00:15)
[2018-03-13 03:34] LABS: HEMATOCRIT 37.4 % (37-47); HEMOGLOBIN 12.4 g/dL (12.0-16.0); MEAN CELL VOLUME 92.3 fL (80-100); MEAN CORPUSCULAR HEMOGLOBIN 30.6 pg (25-34); MEAN CORPUSCULAR HGB CONC 33.2 g/dl (32-36); MEAN PLATELET VOLUME 9.9 fL (7.4-10.4); PLATELET COUNT 221 K/uL (130-400); RED CELL DISTRIBUTION WIDTH CV 13.5 % (11.5-14.5); WHITE BLOOD COUNT 7.91 K/uL (4.8-10.8)
[2018-03-13 04:04] LABS: ALBUMIN 3.2 gm/dl (3.4-5.0); ALKALINE PHOSPHATASE 70 U/L (45-117); ALT/SGPT 24 U/L (12-78); AST/SGOT 17 U/L (15-37); BLOOD UREA NITROGEN 12 mg/dl (7-18); CALCIUM 7.9 mg/dl (8.5-10.1); CARBON DIOXIDE 24 mmol/L (21-32); CREATININE 0.73 mg/dl (0.60-1.20); GLUCOSE 90 mg/dl (70-99); POTASSIUM 3.8 mmol/L (3.5-5.1); SODIUM 142 mmol/L (136-145); TOTAL PROTEIN 6.2 gm/dl (6.4-8.2)
[2018-03-13 04:22] VITALS: BP 104/66; PULSE 60; TEMP 36.4; O2SAT 96
[2018-03-13 04:46] LABS: BASO % 0.4 %; BASO ABS # 0.03 K/uL (0-0.2); EOS % 2.3 %; EOS ABS # 0.18 K/uL (0-0.5); IG# 0.01 K/uL (0.00-0.02); LYMPH % 54.1 %; LYMPH ABS # 4.28 K/uL (1.2-3.4); MONO % 8.1 %; MONO ABS # 0.64 K/uL (0.11-0.59); NEUT ABS # 2.77 K/uL (1.4-6.5)
[2018-03-13 07:15] VITALS: BP 94/55; PULSE 61; TEMP 36.7; O2SAT 97
[2018-03-13] MEDS: CYCLOBENZAPRINE HCL 5 MG TAB PO SCH ×2 (08:13→13:37)
[2018-03-13] MEDS: GABAPENTIN 100 MG CAP PO SCH ×2 (08:14→13:40)
[2018-03-13] MEDS: TOPIRAMATE 50 MG TAB PO SCH (08:14)
[2018-03-13] MEDS ORDERED: ATORVASTATIN 40 MG TAB PO SCH (09:00)
[2018-03-13] MEDS ORDERED: SENNA 8.6 MG TAB PO SCH (09:00)
[2018-03-13] MEDS ORDERED: SERTRALINE HCL 100 MG TAB PO STA (09:18)
[2018-03-13] MEDS ORDERED: PERFLUTREN LIPID MICROSPHERE (DEFINITY) IV ONE (10:57)
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
[2018-03-13 11:52] VITALS: BP 102/61; PULSE 62; TEMP 36.7; O2SAT 94
--- NOTE | 2018-03-13 12:57 | ECHOCARDIOGRAM REPORT ---
*NOTICE TO RECEIVING REPUBLICAN AGENCY This information is strictly Confidential and protected under [place] law. [place] law prohibits you from making any further disclosure of this information unless further disclosure is expressly permitted by the written consent of the person to whom it pertains or is authorized by law. A general authorization for the release of medical or other information is not sufficient for this purpose. Hospital accepts no responsibility if the information is made available to any other person, INCLUDING THE PATIENT. Interpretation Summary * Name: TAYLA LUIS Study Date: 03/13/2018 10:28 AM BP: 104/64 mmHg * Patient Location: C.2E\S\E202\S\1 HR: 65 * : 1965 (M/d/yyyy) Gender: Female Height: 67 in * Age: 52 yrs Ethnicity: CA Weight: 245 lb * Ordering Physician: Rodolfo Johnson * Referring Physician: Self, Referred * Performed By: Rubén Bowling RDCS * * Reason For Study: Chest pain * BSA: 2.2 m2 * -- Conclusions -- * The septal wall motion is consistent with right ventricular pacemaker activation. * Left ventricular wall motion is otherwise normal. * Left ventricular systolic function is normal. * Left ventricular ejection Fraction = 50-55%. * Left ventricular diastolic function is normal. * There is no significant valvular heart disease. Procedure Details * A complete two-dimensional transthoracic echocardiogram was performed (2D, M-mode, Doppler and color flow Doppler). * The study was technically difficult, but visualization was adequate with the administration of Definity ultrasound contrast. * A contrast injection of Definity was performed to improve assessment of LV function. * Contrast was injected into an intravenous site in the right arm. * One vial of Definity ultrasound contrast was diluted in normal saline to a total volume of 10 ml. A total of '2' ml of solution was administered during imaging. * Lot # [id number] of Definity utilized for procedure. * Expiration date 1APR19. * The attending nurse who injected the contrast agent was HARITHA Ellsworth. Left Ventricle * The left ventricle is normal in size. * There is normal left ventricular wall thickness. * Left ventricular systolic function is normal. * Ejection Fraction = 50-55%. * The septal wall motion is consistent with right ventricular pacemaker activation. Left ventricular wall motion is otherwise normal. Right Ventricle * The right ventricle is normal size. * The right ventricular systolic function is normal as assessed by tricuspid annular plane systolic excursion (TAPSE) (normal >1.5 cm). Atria * The left atrial size is normal. * Right atrial size is normal. * There is no evidence of atrial septal defect, but resolution does not allow assessment for a patent foramen ovale. Mitral Valve * The mitral valve is normal. * There is no mitral valve stenosis. * Significant mitral regurgitation is absent. Tricuspid Valve * The tricuspid valve is normal. * There is no tricuspid stenosis. * Significant tricuspid regurgitation is absent. * Doppler findings do not suggest pulmonary hypertension. Aortic Valve * The aortic valve is trileaflet. * Aortic stenosis is absent. * There is no significant aortic regurgitation. Pulmonic Valve * The pulmonary valve is not well seen, but the Doppler examination is normal without significant regurgitation or stenosis. Great Vessels * The aortic root and proximal ascending aorta are normal sized. Pericardium/Pleural * There is no pericardial effusion. Right Ventricle * Pacemaker lead is noted in the right ventricle. Great Vessels * Normal inferior vena cava diameter and respiratory variation suggests normal central venous pressure. Left Ventricular Diastolic Function * Left ventricular diastolic function is normal. MMode 2D Measurements and Calculations IVSd 0.89 cm IVSs 1.6 cm LVIDd 4.4 cm LVIDs 3.9 cm LVPWd 0.83 cm LVPWs 1.4 cm IVS/LVPW 1.1 FS 12.4 % EDV(Teich) 87.9 ml ESV(Teich) 64.3 ml EF(Teich) 26.9 % EDV(cubed) 85.5 ml ESV(cubed) 57.5 ml EF(cubed) 32.8 % % IVS thick 74.7 % % LVPW thick 70.0 % LV mass(C)d 121.0 grams LV mass(C)dI 54.9 grams/m\S\2 LV mass(C)s 218.1 grams LV mass(C)sI 98.9 grams/m\S\2 SV(Teich) 23.7 ml SI(Teich) 10.7 ml/m\S\2 SV(cubed) 28.0 ml SI(cubed) 12.7 ml/m\S\2 EPSS 1.2 cm Ao root diam 3.5 cm Ao root area 9.4 cm\S\2 ACS 2.1 cm LA dimension 3.5 cm asc Aorta Diam 3.2 cm LA/Ao 1.0 LVOT diam 2.2 cm LVOT area 3.9 cm\S\2 LVAd ap4 28.5 cm\S\2 LVLd ap4 7.6 cm EDV(MOD-sp4) 87.2 ml EDV(sp4-el) 90.7 ml LVAs ap4 23.1 cm\S\2 LVLs ap4 7.2 cm ESV(MOD-sp4) 60.4 ml ESV(sp4-el) 62.6 ml EF(MOD-sp4) 30.8 % EF(sp4-el) 31.0 % LVAd ap2 37.9 cm\S\2 LVLd ap2 8.2 cm EDV(MOD-sp2) 143.2 ml EDV(sp2-el) 149.7 ml LVAs ap2 23.8 cm\S\2 LVLs ap2 6.8 cm ESV(MOD-sp2) 66.8 ml ESV(sp2-el) 70.5 ml EF(MOD-sp2) 53.3 % EF(sp2-el) 52.9 % LVLd %diff 8.5 % EDV(MOD-bp) 114.8 ml LVLs %diff -5.95 % ESV(MOD-bp) 64.1 ml EF(MOD-bp) 44.2 % SV(MOD-sp4) 26.8 ml SI(MOD-sp4) 12.2 ml/m\S\2 SV(MOD-sp2) 76.4 ml SI(MOD-sp2) 34.7 ml/m\S\2 SV(MOD-bp) 50.7 ml SI(MOD-bp) 23.0 ml/m\S\2 SV(sp4-el) 28.1 ml SI(sp4-el) 12.7 ml/m\S\2 SV(sp2-el) 79.2 ml SI(sp2-el) 35.9 ml/m\S\2 Doppler Measurements and Calculations MV E max gill 85.4 cm/sec MV A max gill 69.0 cm/sec MV E/A 1.2 MV dec time 0.15 sec Ao V2 max 112.4 cm/sec Ao max PG 5.0 mmHg Ao max PG (full) 1.8 mmHg LUDMILA(V,A) 3.1 cm\S\2 LUDMILA(V,D) 3.1 cm\S\2 LV V1 max PG 3.2 mmHg LV V1 max 89.6 cm/sec PA V2 max 87.6 cm/sec PA max PG 3.1 mmHg PI end-d gill 83.1 cm/sec
--- NOTE | 2018-03-13 13:09 | Progress Note ---
Internal Med Progress Note Date of Service: March 13, 2018. Provider Documentation: SUBJECTIVE: Since overnight, patient reports that the chest pain has improved. Denies acute shortness of breath. She has been able to sleep overnight OBJECTIVE: Exam: General- no acute distress Eyes- EOMI Neck- no JVD Lungs- CTABL, no wheezing, no use of accessary muscles Heart- bradycardia, pacemaker site with old scar Abdomen-soft, nontender to palpation Extremities- no gross edema Neuro- awake and alert ASSESSMENT & PLAN: Hospital Course and Discharge Plans Patient with pacemaker and left sided chest pain primarily near area of pacemaker site CXR 1. Cardiomegaly and cardiac pacemaker. There is no radiographic evidence of congestive failure. 2. There is no airspace consolidation or pleural effusion Ultrasonic graphic evaluation of the left chest wall the level of the patient's left pacemaker generator was performed. There are no abnormal fluid collections No signs of infection, WBC normal, ESR is 2 which is non-inflammatory In the hospital, patient received Morphine, Gabapentin, and Flexeril for pain control Patient was monitored on Telemetry without acute events Acute coronary syndrome was deemed unlikely with negative troponins and good echocardiogram report as below. Patient was evaluated by Cardiology Troponins negative x 3 Echocardiogram * The septal wall motion is consistent with right ventricular pacemaker activation. * Left ventricular wall motion is otherwise normal. * Left ventricular systolic function is normal. * Left ventricular ejection Fraction = 50-55%. * Left ventricular diastolic function is normal. * There is no significant valvular heart disease. Discharge Diagnosis Chest pain that is not likely due to cardiac ischemia Discharge Instructions Patient to be discharged with prescriptions for acetaminophen as needed for pain for 5 day prescription, renewed prescription for meloxicam 15 mg daily for 10 days, also prescribed new discharge medications of gabapentin 100 mg TID for 10 days, and Flexeril 5 mg for 10 days. Upcoming follow up appointments as per [facility] 03/16/2018 11:00 AM [facility] 03/15/2018 9:15 AM Remote Cardiac Devices Cardiology, [facility] Vital Signs: Date Time Temp Pulse Resp B/P (MAP) Pulse Ox O2 Delivery O2 Flow Rate FiO2 03/13/18 12:00 Room Air 03/13/18 11:52 36.7 62 18 102/61 (75) 94 Room Air 03/13/18 08:00 Room Air 03/13/18 07:15 36.7 61 18 94/55 (68) 97 Room Air 03/13/18 04:22 36.4 60 16 104/66 (79) 96 Room Air 03/13/18 04:00 Room Air 03/12/18 23:59 Room Air 03/12/18 23:52 36.7 60 18 106/62 (77) 97 Room Air 03/12/18 20:00 36.5 65 16 129/90 100 Room Air 03/12/18 18:59 36.6 63 18 118/77 96 18 18:36 63 18 96 18 18:31 118/77 18 18:06 60 21 03/12/18 18:01 119/78 03/12/18 17:36 60 22 98 03/12/18 17:31 60 16 113/77 97 Room Air 03/12/18 17:20 130/79 18 17:01 61 17 125/81 97 Room Air 03/12/18 16:56 60 19 99 Room Air 03/12/18 16:46 113/78 18 16:31 99/66 18 16:26 60 15 96 Room Air 03/12/18 16:16 109/70 03/12/18 16:01 103/76 03/12/18 15:56 61 20 97 Room Air 03/12/18 15:51 63 21 95 Room Air 03/12/18 15:46 110/75 18 15:41 110/73 18 15:36 61 18 119/71 18 15:36 67 22 119/71 94 Room Air 18 15:32 110/57 18 15:30 70 20 110/57 95 Room Air 03/12/18 15:21 66 21 98 Room Air 03/12/18 15:06 61 20 96 Room Air 03/12/18 15:01 137/82 18 14:58 66 20 96 Room Air 03/12/18 14:49 98 Room Air 03/12/18 14:40 128/83 518 14:40 66 18 14:28 98 Room Air 03/12/18 14:28 36.6 68 18 128/83 98 Room Air 03/12/18 14:28 98 Room Air 03/12/18 14:28 36.6 68 18 128/83 98 Room Air Lab Results: Results Past 24 Hours Test 03/12/18 15:20 03/12/18 21:39 03/13/18 03:19 Range/Units White Blood Count 7.58 7.91 4.8-10.8 K/uL Red Blood Count 4.04 4.05 4.2-5.4 M/uL Hemoglobin 13.0 12.4 12.0-16.0 g/dL Hematocrit 37.9 37.4 37-47 % Mean Corpuscular Volume 93.8 92.3 80-100 fL Mean Corpuscular Hemoglobin 32.2 30.6 25-34 pg Mean Corpuscular Hemoglobin Concent 34.3 33.2 32-36 g/dl Platelet Count 310 221 130-400 K/uL Neutrophils (%) (Auto) 47.5 35.0 % Lymphocytes (%) (Auto) 42.3 54.1 % Monocytes (%) (Auto) 7.8 8.1 % Eosinophils (%) (Auto) 2.1 2.3 % Basophils (%) (Auto) 0.3 0.4 % Neutrophils # (Auto) 3.60 2.77 1.4-6.5 K/uL Lymphocytes # (Auto) 3.21 4.28 1.2-3.4 K/uL Monocytes # (Auto) 0.59 0.64 0.11-0.59 K/uL Eosinophils # (Auto) 0.16 0.18 0-0.5 K/uL Basophils # (Auto) 0.02 0.03 0-0.2 K/uL Immature Granulocyte % (Auto) 0.0 0.1 % Immature Granulocyte # (Auto) 0.00 0.01 0.00-0.02 K/uL Platelet Estimate NORMAL Red Blood Cell Morphology Unremarkable Prothrombin Time 10.0 9.0-12.0 SECONDS Prothromb Time International Ratio 1.0 0.9-1.1 Activated Partial Thromboplast Time 24.7 21.0-31.0 SECONDS Partial Thromboplastin Ratio 1.0 D-Dimer 430 0-500 ug/L FEU Sodium Level 144 142 136-145 mmol/L Potassium Level 3.6 3.8 3.5-5.1 mmol/L Chloride Level 115 113 98-107 mmol/L Carbon Dioxide Level 23 24 21-32 mmol/L Anion Gap 6.0 5.0 3-11 mmol/L Blood Urea Nitrogen 13 12 7-18 mg/dl Creatinine 0.74 0.73 0.60-1.20 mg/dl Est Creatinine Clear Calc Drug Dose 118.3 118.5 ml/min Estimated GFR () 109.5 111.3 Estimated GFR (Non- 94.5 96.0 BUN/Creatinine Ratio 17.3 16.9 10-20 Random Glucose 93 90 70-99 mg/dl Calcium Level 8.7 7.9 8.5-10.1 mg/dl Troponin I < 0.015 < 0.015 < 0.015 0-0.045 ng/ml Pro-B-Type Natriuretic Peptide 28 0-900 pg/ml Total Creatine Kinase 115 26-192 U/L Creatine Kinase MB 0.8 0.5-3.6 ng/ml Creatine Kinase MB Ratio 0.7 0-3.0 Mean Platelet Volume 9.9 7.4-10.4 fL RDW Standard Deviation 46.0 36.4-46.3 fL RDW Coefficient of Variation 13.5 11.5-14.5 % Erythrocyte Sedimentation Rate 2 0-21 mm/hr Total Bilirubin 0.3 0.2-1 mg/dl Aspartate Amino Transf (AST/SGOT) 17 15-37 U/L Alanine Aminotransferase (ALT/SGPT) 24 12-78 U/L Alkaline Phosphatase 70 45-117 U/L Total Protein 6.2 6.4-8.2 gm/dl Albumin 3.2 3.4-5.0 gm/dl Globulin 3.0 2.5-4.0 gm/dl Albumin/Globulin Ratio 1.1 0.9-2
[2018-03-13] MEDS ORDERED: FLX5 PO (13:14)
[2018-03-13] MEDS ORDERED: MELO15TA10 PO (13:14)
[2018-03-13] MEDS ORDERED: NRN100 PO (13:14)
[2018-03-13] MEDS ORDERED: ACET-1311 PO (13:16)
--- NOTE | 2018-03-13 13:34 | Discharge Instructions ---
Discharge Instructions Date of Service March 13, 2018. Admission Reason for Admission: Chest Pain Discharge Discharge Diagnosis / Problem: non cardiac chest pain, presence of pacemaker Discharge Goals Goal(s): Decrease discomfort Activity Recommendations Activity Limitations: per Instructions/Follow-up section Shower/Bathe: no limitations . Instructions / Follow-Up Instructions / Follow-Up Hospital Course and Discharge Plans Patient with pacemaker and left sided chest pain primarily near area of pacemaker site CXR 1. Cardiomegaly and cardiac pacemaker. There is no radiographic evidence of congestive failure. 2. There is no airspace consolidation or pleural effusion Ultrasonic graphic evaluation of the left chest wall the level of the patient's left pacemaker generator was performed. There are no abnormal fluid collections No signs of infection, WBC normal, ESR is 2 which is non-inflammatory In the hospital, patient received Morphine, Gabapentin, and Flexeril for pain control Patient was monitored on Telemetry without acute events Acute coronary syndrome was deemed unlikely with negative troponins and good echocardiogram report as below. Patient was evaluated by Cardiology Troponins negative x 3 Echocardiogram * The septal wall motion is consistent with right ventricular pacemaker activation. * Left ventricular wall motion is otherwise normal. * Left ventricular systolic function is normal. * Left ventricular ejection Fraction = 50-55%. * Left ventricular diastolic function is normal. * There is no significant valvular heart disease. Discharge Diagnosis Chest pain that is not likely due to cardiac ischemia Discharge Instructions Patient to be discharged with prescriptions for acetaminophen as needed for pain for 5 day prescription, renewed prescription for meloxicam 15 mg daily for 10 days, also prescribed new discharge medications of gabapentin 100 mg TID for 10 days, and Flexeril 5 mg for 10 days. [facility]coming [facility] 03[facility]16/2018 11:00 [facility] 03/15/2018 9:15 AM Remote Cardiac Devices Cardiology, [facility] Current Hospital Diet Patient's current hospital diet: AHA Diet (Heart Healthy) Discharge Diet Recommended Diet: AHA Diet (Heart Healthy) Pending Studies Studies pending at discharge: no Laboratory Results 03/13/18 03:19 Red Blood Count 4.05, Mean Corpuscular Volume 92.3, Mean Corpuscular Hemoglobin 30.6, Mean Corpuscular Hemoglobin Concent 33.2, Mean Platelet Volume 9.9, Neutrophils (%) (Auto) 35.0, Lymphocytes (%) (Auto) 54.1, Monocytes (%) (Auto) 8.1, Eosinophils (%) (Auto) 2.3, Basophils (%) (Auto) 0.4, Neutrophils # (Auto) 2.77, Lymphocytes # (Auto) 4.28, Monocytes # (Auto) 0.64, Eosinophils # (Auto) 0.18, Basophils # (Auto) 0.03 03/13/18 03:19 Test 03/12/18 15:20 03/12/18 21:39 03/13/18 03:19 Platelet Estimate NORMAL Red Blood Cell Morphology Unremarkable Prothrombin Time 10.0 SECONDS (9.0-12.0) Prothromb Time International Ratio 1.0 (0.9-1.1) Activated Partial Thromboplast Time 24.7 SECONDS (21.0-31.0) Partial Thromboplastin Ratio 1.0 D-Dimer 430 ug/L FEU (0-500) Pro-B-Type Natriuretic Peptide 28 pg/ml (0-900) Total Creatine Kinase 115 U/L (26-192) Creatine Kinase MB 0.8 ng/ml (0.5-3.6) Creatine Kinase MB Ratio 0.7 (0-3.0) White Blood Count 7.91 K/uL (4.8-10.8) Red Blood Count 4.05 M/uL (4.2-5.4) Hemoglobin 12.4 g/dL (12.0-16.0) Hematocrit 37.4 % (37-47) Mean Corpuscular Volume 92.3 fL (80-100) Mean Corpuscular Hemoglobin 30.6 pg (25-34) Mean Corpuscular Hemoglobin Concent 33.2 g/dl (32-36) Platelet Count 221 K/uL (130-400) Mean Platelet Volume 9.9 fL (7.4-10.4) Neutrophils (%) (Auto) 35.0 % Lymphocytes (%) (Auto) 54.1 % Monocytes (%) (Auto) 8.1 % Eosinophils (%) (Auto) 2.3 % Basophils (%) (Auto) 0.4 % Neutrophils # (Auto) 2.77 K/uL (1.4-6.5) Lymphocytes # (Auto) 4.28 K/uL (1.2-3.4) Monocytes # (Auto) 0.64 K/uL (0.11-0.59) Eosinophils # (Auto) 0.18 K/uL (0-0.5) Basophils # (Auto) 0.03 K/uL (0-0.2) RDW Standard Deviation 46.0 fL (36.4-46.3) RDW Coefficient of Variation 13.5 % (11.5-14.5) Immature Granulocyte % (Auto) 0.1 % Immature Granulocyte # (Auto) 0.01 K/uL (0.00-0.02) Erythrocyte Sedimentation Rate 2 mm/hr (0-21) Anion Gap 5.0 mmol/L (3-11) Est Creatinine Clear Calc Drug Dose 118.5 ml/min Estimated GFR () 111.3 Estimated GFR (Non- 96.0 BUN/Creatinine Ratio 16.9 (10-20) Calcium Level 7.9 mg/dl (8.5-10.1) Total Bilirubin 0.3 mg/dl (0.2-1) Aspartate Amino Transf (AST/SGOT) 17 U/L (15-37) Alanine Aminotransferase (ALT/SGPT) 24 U/L (12-78) Alkaline Phosphatase 70 U/L (45-117) Troponin I < 0.015 ng/ml (0-0.045) Total Protein 6.2 gm/dl (6.4-8.2) Albumin 3.2 gm/dl (3.4-5.0) Globulin 3.0 gm/dl (2.5-4.0) Albumin/Globulin Ratio 1.1 (0.9-2) Medical Emergencies . Who to Call and When: Medical Emergencies: If at any time you feel your situation is an emergency, please call 911 immediately. . Non-Emergent Contact Non-Emergency issues call your: Primary Care Provider Call Non-Emergent contact if: you have any medication questions . . "Provider Documentation" section prepared by Rodolfo Johnson. .
--- NOTE | 2018-03-13 13:35 | Discharge Summary ---
Discharge Summary Date of Service March 13, 2018. Discharge Summary Admission Date: March 12, 2018 at 17:49 Discharge Date: March 13, 2018 Discharge Disposition: Home Principal Diagnosis: non cardiac chest pain, presence of pacemaker Medication Reconciliation New Medications: Acetaminophen (Tylenol) 325 Mg Tab 325 MG PO Q6 PRN for Pain for 5 Days, #20 TAB Cyclobenzaprine HCl (Cyclobenzaprine HCl) 5 Mg Tab 5 MG PO TID for 10 Days, #30 TAB Gabapentin (Gabapentin) 100 Mg Cap 100 MG PO TID for 10 Days, #30 CAP Continued Medications: Albuterol Hfa (Ventolin Hfa) 200 Puffs/37255 Mcg Aers 2 PUFFS INH Q6H PRN for PRN, #1 INHALER Atorvastatin (Lipitor) 40 Mg Tab 40 MG PO QAM, TAB Buspirone Hcl (Buspirone Hcl) 10 Mg Tab 10 MG PO TID, TAB Cetirizine (Zyrtec) 10 Mg Tab 10 MG PO QAM, TAB Fish Oil ([place]-3) 1 Ea Cap 4 CAP PO QAM Fluticasone Propionate (Nasal) (Flonase Allergy Relief) 50 Mcg/Act Spr 2 SPRAYS INTNAS PRN Meloxicam (Mobic) 15 Mg Tab 15 MG PO DAILY for 10 Days, #10 TAB (This prescription has been renewed) Rizatriptan Benzoate (Maxalt) 5 Mg Tab 5 MG PO PRN UD, TAB Sertraline (Zoloft) 100 Mg Tab 100 MG PO DAILY, TAB Topiramate (Topamax) 50 Mg Tab 50 MG PO BID, TAB Admission Information HPI (per Admitting provider): This is a patient with PMH of Mobitz type 2 status post pacemaker placement who in the past has seen in the emergency department both September and then again in October regarding pain near her pacemaker site as per outpatient cardiology note on 11/09/[address] Weaver, who reports of having chest pain symptoms for several days. She reported to the ED of the pain as a 5/10 in severity, sharp in sensation, intermittent sharp stabbing sensations, experiencing palpitations and shortness of breath today. When examined by medical hospitalist doctor, the pain appears to be more localized on to the left chest over the incision of the pacemaker site. There is tenderness of palpation over that area of the left chest but not of the right chest. There is no apparent fluctuance or induration palpable. Patient denies other symptoms of fever or tingling sensations or numbness or pain elsewhere or motor strength deficits of the extremities. Moving the upper extremities does not exacerbate the pain. Physical Exam (per Admitting): General Appearance: WD/WN, no apparent distress Head: normocephalic, atraumatic Eyes: normal inspection, EOMI ENT: normal ENT inspection, hearing grossly normal, pharynx normal Neck: supple, no adenopathy, no JVD, trachea midline Respiratory/Chest: lungs clear, normal breath sounds, no respiratory distress, no accessory muscle use, + pertinent finding (tenderness of left chest near the pacemaker site) Cardiovascular: regular rate, rhythm, no edema, no JVD, normal peripheral pulses Abdomen/GI: normal bowel sounds, non tender, soft, no organomegaly Back: normal inspection, no muscle spasm, normal range of motion Extremities/Musculoskelatal: normal inspection, no calf tenderness, no pedal edema, non-tender Neurologic/Psych: no motor/sensory deficits, alert, normal mood/affect, oriented x 3 Skin: normal color, warm/dry, no rash Hospital Course Hospital Course and Discharge Plans Patient with pacemaker and left sided chest pain primarily near area of pacemaker site CXR 1. Cardiomegaly and cardiac pacemaker. There is no radiographic evidence of congestive failure. 2. There is no airspace consolidation or pleural effusion Ultrasonic graphic evaluation of the left chest wall the level of the patient's left pacemaker generator was performed. There are no abnormal fluid collections No signs of infection, WBC normal, ESR is 2 which is non-inflammatory In the hospital, patient received Morphine, Gabapentin, and Flexeril for pain control Patient was monitored on Telemetry without acute events Acute coronary syndrome was deemed unlikely with negative troponins and good echocardiogram report as below. Patient was evaluated by Cardiology Troponins negative x 3 Echocardiogram * The septal wall motion is consistent with right ventricular pacemaker activation. * Left ventricular wall motion is otherwise normal. * Left ventricular systolic function is normal. * Left ventricular ejection Fraction = 50-55%. * Left ventricular diastolic function is normal. * There is no significant valvular heart disease. Discharge Diagnosis Chest pain that is not likely due to cardiac ischemia Discharge Instructions Patient to be discharged with prescriptions for acetaminophen as needed for pain for 5 day prescription, renewed prescription for meloxicam 15 mg daily for 10 days, also prescribed new discharge medications of gabapentin 100 mg TID for 10 days, and Flexeril 5 mg for 10 days. Upcoming follow up appointments as per [facility] 03/16/2018 11:00 AM [facility] 03/15/2018 9:15 AM Remote Cardiac Devices G[facility] Cardiology, [facility] Total time spent on discharge = 40 minutes This includes examination of the patient, discharge planning, medication reconciliation, and communication with other providers. Discharge Instructions see above
[2018-03-13 13:47] VITALS: BP 102/61; PULSE 62; TEMP 36.7; O2SAT 94
[2018-03-14] MEDS ORDERED: SERTRALINE HCL 100 MG TAB PO SCH (09:00)
== END 2018-03-13 14:18 | disposition home or self-care (01) ==
LOC: EDBD 14:28 → C.EDC 14:28 → C.2E 17:49 → ENRESERV 18:22
PROVIDERS: ADMIT Hospitalist; ATTEND Hospitalist
DX: R07.89 Other chest pain (principal); Z95.0 Presence of cardiac pacemaker; E78.5 Hyperlipidemia, unspecified; Z83.3 Family history of diabetes mellitus; Z82.49 Family history of ischemic heart disease and other diseases of the circulatory system; Z88.8 Allergy status to other drugs, medicaments and biological substances; Z91.040 Latex allergy status; Z87.891 Personal history of nicotine dependence

== ENCOUNTER → 2018-05-28 | Outpatient (CLI) | payer BC ==
[~2018-05-28] MED LIST changes: +ACET-1256 PO; +AMPH10CA3 PO; +ATOR-24 PO; -BUPR-79 PO; +BUSP-8 PO; +FLUT0.15 INTNAS; +GABA-112 PO; +MELO15TA10 PO; -MELO7.5T5 PO; +OXYC-737 PO; -OXYC1TAB3 PO; -PSYL0.529; +RIZA5TAB10 PO; +SERT-234 PO; -TRAM-10 PO; +VNTHFA/IN INH
--- NOTE | 2018-05-28 12:12 | DIAGNOSTIC IMAGING REPORT ---
LUMBAR SPINE W/O CONTRAST CLINICAL HISTORY: 52 years-old Female with LOW BACK PAIN. Chronic low back pain, most pronounced on the right with right leg numbness COMPARISON: CT abdomen and pelvis 04/25/2018 TECHNIQUE: Multiplanar, multi sequence MRI of the lumbar spine was performed without intravenous contrast. FINDINGS: The large [id number] information architect localizer images demonstrate no gross abnormality. No aortic aneurysm or pathologically enlarged lymph nodes are identified. The paraspinal structures are unremarkable. There is transitional lumbosacral anatomy noted with rudimentary disc space at S1-S2. Conus medullaris terminates at the L1-L2 interspace. Signal within the imaged thoracic spinal cord appears normal. Cauda equina are within normal limits. There is no acute fracture, subluxation or focal bone marrow edema. There are T1 and T2 hyperintense lesions involving the T11, L2 and L3 vertebral bodies measuring up to 3.3 cm at L2 suggesting hemangiomas with areas of focal fatty marrow also in the differential. T12-L1: No central canal or neural foraminal stenosis. L1-L2: No central canal or neural foraminal stenosis. L2-L3: No central canal or neural foraminal stenosis. Mild ligamentum flavum thickening with trace effusions. L3-L4: No central canal or neural foraminal stenosis. Mild ligamentum flavum thickening with trace facet effusions. L4-L5: Mild intervertebral disc space narrowing with disc desiccation. Very small circumferential annular disc bulge with suggested annular fissure along the far lateral distribution, image 22 series 7. Mild to moderate facet arthrosis with ligamentum flavum thickening and trace facet effusions. Mild flattening of the ventral thecal sac without significant central canal stenosis. Mild right foraminal narrowing. Left foramen is patent. L5-S1: Mild intervertebral disc space narrowing with disc desiccation. Moderate facet arthrosis with ligamentum flavum thickening. Findings cause mild lateral foraminal narrowing. Central canal is patent. IMPRESSION: 1. No acute fracture, focal bone marrow edema or subluxation. 2. Mild intervertebral disc space narrowing with very small circumferential annular disc bulge and probable annular fissure at L4-L5 with mild to moderate facet arthrosis and ligament of flavum thickening results in mild right foraminal stenosis. 3. Mild intervertebral disc space narrowing at L5-S1 with moderate facet arthrosis and ligamentum flavum thickening causes mild bilateral foraminal narrowing. 4. No significant central canal or foraminal stenosis identified. The above report was generated using voice recognition software. It may contain grammatical, syntax or spelling errors. Electronically signed by: Franko Duke M.D. 05/28/2018 12:10 PM Dictated Date/Time: 05/28/2018 12:01 PM
== END | disposition home or self-care (01) ==
LOC: C.MRI 10:50
PROVIDERS: ATTEND Family Medicine
DX: M51.26 Other intervertebral disc displacement, lumbar region (principal); M99.73 Connective tissue and disc stenosis of intervertebral foramina of lumbar region; M48.07 Spinal stenosis, lumbosacral region; M47.816 Spondylosis without myelopathy or radiculopathy, lumbar region